=== PATIENT | male | born 1975 | race Caucasian/White ===

== ENCOUNTER 2017-07-04 09:46 | Inpatient (IN) | payer OTHER ==
[2017-07-04] MEDS ORDERED: Piperacillin/Tazobactam 4.5 GM in Sodium Chloride 0.9% 100 ML IV ONE (10:23)
--- NOTE | 2017-07-04 10:26 | EDM.PDOC ---
<Orly Martinez - Last Filed: 07/04/17 11:07> ED HPI GENERAL MEDICAL PROBLEM - General Chief Complaint: Lower Extremity Injury/Pain Stated Complaint: [facility] Time Seen by Provider: 07/04/17 10:02 Source of Information: Reports: Patient History Limitations: Reports: No Limitations - History of Present Illness INITIAL COMMENTS - FREE TEXT/NARRATIVE: Patient is a 41 YO male who presents today with right knee infection. He states he fell on the ice 5 days ago and landed on the right knee. 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 He states around 7 pm last night it became very red and painful. He went to the [facility] ER and was given 2 shots of Rocephin and prescribed vicodin for pain, Keflex and clindamycin. He took 2 tabs vicodin this morning but has not taken any of the antibiotics prescribed to him. He is here because the pain is severe and he states the infection is spreading up and down his leg. He denies skin infections in the past. He denies personal history of diabetes and states he is in generally good health. Right Lower Leg Pain Score (Numeric/FACES): 8 - Related Data Allergies Allergy/AdvReac Type Severity Reaction Status Date / Time No Known Allergies Allergy Verified 07/04/17 09:55 Home Meds: Home Meds Cephalexin 500 mg PO TID 07/04/17 [History] Clindamycin HCl [Cleocin] 300 mg PO Q8H 07/04/17 [History] Hydrocodone/Acetaminophen [Hydrocodon-Acetaminophen 5-325] 1 each PO Q6H PRN 01/11 [History] Past Medical History - Past Health History Medical/Surgical History: Denies Medical/Surgical History Social & Family History - Tobacco Use Smoking Status *Q: Never Smoker - Recreational Drug Use Recreational Drug Use: No Review of Systems - Review of Systems Review Of Systems: See Below Constitutional: Reports: Chills, Fever Respiratory: Reports: No Symptoms Cardiovascular: Reports: No Symptoms GI/Abdominal: Reports: No Symptoms Musculoskeletal: Reports: Leg Pain, Joint Pain (right knee), Joint Swelling Skin: Reports: Erythema, Wound Neurological: Reports: No Symptoms Psychiatric: Reports: No Symptoms ED EXAM, GENERAL - Physical Exam Exam: See Below Exam Limited By: No Limitations General Appearance: Alert, WD/WN, Moderate Distress Respiratory/Chest: No Respiratory Distress Cardiovascular: Normal Peripheral Pulses Peripheral Pulses: 2+: Posterior Tibial (L), Posterior Tibial (R), Dorsalis Pedis (L), Dorsalis Pedis (R) Extremities: Joint Swelling, Leg Pain, Limited Range of Motion (unable to flex the knee ), Increased Warmth, Redness (streaking redness to mid thigh and warmth and erythema distal to the ankle ) Neurological: Alert, Oriented, CN II-XII Intact, Normal Cognition Psychiatric: Normal Affect, Anxious Skin Exam: Erythema, Increased Warmth, Wound/Incision (wound on right knee approximately 2 inches by 2 inches) Course - Vital Signs Last Recorded V/S: Last Vital Signs Temp 100.4 F 07/04/17 09:52 Pulse 93 07/04/17 09:52 Resp 15 07/04/17 09:52 BP 139/74 07/04/17 09:52 Pulse Ox 97 07/04/17 09:52 - Orders/Labs/Meds Orders: Active Orders 24 hr Category Date Time Status CULTURE ANAEROBIC + SMEAR [RM] Stat Lab 07/04/17 10:20 Ordered CULTURE BLOOD [BC] Stat Lab 07/04/17 10:58 Received CULTURE BLOOD [BC] Stat Lab 07/04/17 11:10 Received Blood Culture x2 Reflex Set [OM.PC] Stat Oth 07/04/17 09:59 Ordered Labs: Laboratory Tests 07/04/17 07/04/17 Range/Units 11:10 11:10 WBC 20.16 H (4.23-9.07) K/mm3 RBC 5.08 (4.63-6.08) M/mm3 Hgb 14.6 (13.7-17.5) gm/L Hct 43.7 (40.1-51.0) % MCV 86.0 (79.0-92.2) fl MCH 28.7 (25.7-32.2) pg MCHC 33.4 (32.2-35.5) g/dl RDW Std Deviation 40.1 (35.1-43.9) fL Plt Count 288 (163-337) K/mm3 MPV 10.7 (9.4-12.3) fl Neutrophils % (Manual) 87 H (40-60) % Band Neutrophils % 4 (0-10) % Lymphocytes % (Manual) 5 L (20-40) % Atypical Lymphs % 0 % Monocytes % (Manual) 4 (2-10) % Eosinophils % (Manual) 0 L (0.8-7.0) % Basophils % (Manual) 0 L (0.2-1.2) Platelet Estimate See note RBC Morph Comment Normal Sodium 140 (136-145) mEq/L Potassium 3.6 (3.5-5.1) mEq/L Chloride 102 (98-107) mEq/L Carbon Dioxide 26 (21-32) mEq/L Anion Gap 15.6 H (5-15) BUN 14 (7-18) mg/dL Creatinine 1.1 (0.7-1.3) mg/dL Est Cr Clr Drug Dosing 97.00 mL/min Estimated GFR (MDRD) > 60 (>60) mL/min BUN/Creatinine Ratio 12.7 L (14-18) Glucose 107 H (74-106) mg/dL Calcium 8.8 (8.5-10.1) mg/dL Total Bilirubin 0.6 (0.2-1.0) mg/dL AST 15 (15-37) U/L ALT 34 (16-63) U/L Alkaline Phosphatase 67 (46-116) U/L C-Reactive Protein 19.8 H* (<1.0) mg/dL Total Protein 7.9 (6.4-8.2) g/dl Albumin 3.8 (3.4-5.0) g/dl Globulin 4.1 gm/dL Albumin/Globulin Ratio 0.9 L (1-2) Meds: Medications Discontinued Medications Generic Name Dose Route Start Last Admin Trade Name Alireza PRN Reason Stop Dose Admin Hydromorphone HCl 0.5 mg 07/04/17 10:29 07/04/17 10:38 Dilaudid IVPUSH 07/04/17 10:30 0.5 mg ONETIME ONE Administration Piperacillin Sod/Tazobactam 100 mls @ 200 mls/hr 07/04/17 10:23 07/04/17 10: 38 Sod 4.5 gm/ Sodium Chloride IV 07/04/17 10:52 200 mls/hr ONETIME ONE Administration Vancomycin HCl 2 gm/ Sodium 250 mls @ 250 mls/hr 07/04/17 10:29 07/04/17 10: 56 Chloride IV 07/04/17 11:28 Not Given ONETIME ONE Vancomycin HCl 2 gm/ Sodium 500 mls @ 500 mls/hr 07/04/17 10:45 07/04/17 10: 56 Chloride IV 07/04/17 11:44 500 mls/hr ONETIME ONE Administration Departure - Departure Disposition: Refer to Observation Clinical Impression: Cellulitis of knee, right - Discharge Information - My Orders Last 24 Hours: My Active Orders 07/04/17 09:59 Blood Culture x2 Reflex Set [OM.PC] Stat 07/04/17 10:20 CULTURE ANAEROBIC + SMEAR [RM] Stat 07/04/17 10:58 CULTURE BLOOD [BC] Stat 07/04/17 11:10 CULTURE BLOOD [BC] Stat - Assessment/Plan Last 24 Hours: My Active Orders 07/04/17 09:59 Blood Culture x2 Reflex Set [OM.PC] Stat 07/04/17 10:20 CULTURE ANAEROBIC + SMEAR [RM] Stat 07/04/17 10:58 CULTURE BLOOD [BC] Stat 07/04/17 11:10 CULTURE BLOOD [BC] Stat <Bc Hernandez L - Last Filed: 07/04/17 13:28> Course - Re-Assessments/Exams Free Text/Narrative Re-Assessment/Exam: 07/04/17 12:44 Initial history and exam by SAMINA Padgett student, I agree with her hx and exam of pt as documented. I have also taken a hx from and evaluated patient. He has serious cellulitis of the right knee that is spreading quite rapidly, he already did have Rocephin IM at [place] very early this morning at that ED visit. Symptoms have continued to worsen since that time to the point where he has severe difficulty ambulating. Came in by ambulance this morning to our ED short time ago. We have started him on Zosyn 4.5 g IV and also vancomycin 2 g IV has been ordered. White blood count around 20,000 C-reactive protein around 19. He does not appear to have an abscess or knee effusion. He has good motion of the knee with some but not severe discomfort. He will be admitted for further IV antibiotics and close monitoring of this severe cellulitis infection Departure - Departure Time of Disposition: 13:28 Condition: Serious ED Communication - Discussed Case With (1) Discussed Case With (1): Admitting Provider (Dr Cesar, decision to admit at about 11:40.)
[2017-07-04] MEDS ORDERED: HYDROmorphone 0.5 MG/0.5 ML SYRINGE IVPUSH ONE (10:29)
[2017-07-04] MEDS ORDERED: Vancomycin 2 GM in Sodium Chloride 0.9% 500 ML IV ONE (10:45)
--- NOTE | 2017-07-04 12:38 | CR ---
Right knee: Four views of the right knee were obtained. Comparison: No previous study. Soft tissue swelling is seen anteriorly. Medial and lateral joint spaces are maintained in height. No joint effusion is seen. No fracture or other bony abnormality is identified. Impression: 1. Soft tissue swelling. 2. No acute bony abnormality is appreciated on right knee exam. Diagnostic code #2
[2017-07-04] MEDS ORDERED: Sodium Chloride 0.9% 10 ML Syringe FLUSH PRN (13:50)
[2017-07-04] MEDS ORDERED: Ondansetron 4 MG/2 ML SDV IV PRN (13:50)
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
[2017-07-04] MEDS: Ketorolac 30 MG/ML SDV IM SCH ×2 (14:12→20:11)
[2017-07-04] MEDS: Acetaminophen/oxyCODONE 325-5 MG Tab PO PRN ×3 (14:12→22:26)
[2017-07-04] MEDS: Enoxaparin 40 MG/0.4 ML Syringe SUBCUT SCH (14:13)
[2017-07-04] MEDS: Bacitracin Oint 15 GM Tube TOP SCH ×2 (16:30→20:12)
[2017-07-04] MEDS: Clindamycin Phosphate 600 MG in Dextrose 5% in Water 100 ML IV SCH ×4 (17:10→23:36)
[2017-07-05] MEDS: Ketorolac 30 MG/ML SDV IVPUSH SCH ×4 (02:24→20:45)
[2017-07-05] MEDS: Acetaminophen/oxyCODONE 325-5 MG Tab PO PRN ×5 (02:25→23:07)
[2017-07-05] MEDS: Clindamycin Phosphate 600 MG in Dextrose 5% in Water 100 ML IV SCH ×8 (06:27→23:05)
[2017-07-05] MEDS: Bacitracin Oint 15 GM Tube TOP SCH ×2 (08:03→20:49)
[2017-07-05] MEDS: Enoxaparin 40 MG/0.4 ML Syringe SUBCUT SCH (08:04)
--- NOTE | 2017-07-05 11:29 | PCM.PN ---
- General Info Date of Service: 07/05/17 Subjective Update: Overnight, no acute events. Patient reports significant improvement in pain, compared to yesterday. Pain controlled with scheduled Toradol and PRN Percocet. Has been able to ambulate better, with assistance of walker. Has also been showering. Tolerating regular diet. - Patient Data Vitals - Most Recent: Last Vital Signs Temp 36.8 C 07/05/17 08:15 Pulse 83 07/05/17 08:15 Resp 16 07/05/17 08:15 BP 102/56 L 07/05/17 08:15 Pulse Ox 94 L 07/05/17 08:15 Weight - Most Recent: 108.125 kg I&O - Last 24 Hours: Intake & Output 07/04/17 07/05/17 07/05/17 22:59 06:59 14:59 Intake Total 1040 904 120 Output Total 600 1200 Balance 440 -296 120 Lab Results Last 24 Hours: Laboratory Results - last 24 hr 07/04/17 07/04/17 Range/Units 11:10 11:10 Neutrophils % (Manual) 87 H (40-60) % Band Neutrophils % 4 (0-10) % Lymphocytes % (Manual) 5 L (20-40) % Atypical Lymphs % 0 % Monocytes % (Manual) 4 (2-10) % Eosinophils % (Manual) 0 L (0.8-7.0) % Basophils % (Manual) 0 L (0.2-1.2) Platelet Estimate See note RBC Morph Comment Normal Sodium 140 (136-145) mEq/L Potassium 3.6 (3.5-5.1) mEq/L Chloride 102 (98-107) mEq/L Carbon Dioxide 26 (21-32) mEq/L Anion Gap 15.6 H (5-15) BUN 14 (7-18) mg/dL Creatinine 1.1 (0.7-1.3) mg/dL Est Cr Clr Drug Dosing 97.00 mL/min Estimated GFR (MDRD) > 60 (>60) mL/min BUN/Creatinine Ratio 12.7 L (14-18) Glucose 107 H (74-106) mg/dL Calcium 8.8 (8.5-10.1) mg/dL Total Bilirubin 0.6 (0.2-1.0) mg/dL AST 15 (15-37) U/L ALT 34 (16-63) U/L Alkaline Phosphatase 67 (46-116) U/L C-Reactive Protein 19.8 H* (<1.0) mg/dL Total Protein 7.9 (6.4-8.2) g/dl Albumin 3.8 (3.4-5.0) g/dl Globulin 4.1 gm/dL Albumin/Globulin Ratio 0.9 L (1-2) Kobi Results Last 24 Hours: Microbiology 07/04/17 11:10 Aerobic Blood Culture - Preliminary Blood - Venous - Lab Draw NO GROWTH AFTER 1 DAY Anaerobic Blood Culture - Preliminary NO GROWTH AFTER 1 DAY 07/04/17 10:58 Aerobic Blood Culture - Preliminary Blood - Venous NO GROWTH AFTER 1 DAY Anaerobic Blood Culture - Preliminary NO GROWTH AFTER 1 DAY 07/04/17 10:20 Gram Stain - Final Knee, Right Anaerobic Culture - Preliminary (Mrsa) Staphylococcus Aureus Med Orders - Current: Current Medications Bacitracin (Bacitracin Oint) 0 gm TOP BID [facility] Last Admin: 07/05/17 08:03 Dose: 1 applic Enoxaparin Sodium (Lovenox) 40 mg SUBCUT DAILY [facility] Last Admin: 07/05/17 08:04 Dose: 40 mg Hydromorphone HCl (Dilaudid) 0.5 mg IVPUSH Q2H PRN PRN Reason: Pain (severe 7-10) Clindamycin Phosphate 600 mg/ (Dextrose/Water) 104 mls @ 208 mls/hr IV Q6H [facility] Last Admin: 07/05/17 06:27 Dose: 208 mls/hr Ketorolac Tromethamine (Toradol) 30 mg IVPUSH Q6H [facility] Stop: 07/09/17 08:01 Last Admin: 07/05/17 08:04 Dose: 30 mg Ondansetron HCl (Zofran) 4 mg IV Q4H PRN PRN Reason: Nausea/Vomiting Oxycodone/Acetaminophen (Percocet 325-5 Mg) 1 - 2 tab PO Q4H PRN PRN Reason: Pain Last Admin: 07/05/17 11:11 Dose: 1 tab Sodium Chloride (Saline Flush) 10 ml FLUSH ASDIRECTED PRN PRN Reason: Keep Vein Open Discontinued Medications Hydromorphone HCl (Dilaudid) 0.5 mg IVPUSH ONETIME ONE Stop: 07/04/17 10:30 Last Admin: 07/04/17 10:38 Dose: 0.5 mg Piperacillin Sod/Tazobactam (Sod 4.5 gm/ Sodium Chloride) 100 mls @ 200 mls/hr IV ONETIME ONE Stop: 07/04/17 10:52 Last Admin: 07/04/17 10:38 Dose: 200 mls/hr Vancomycin HCl 2 gm/ Sodium (Chloride) 250 mls @ 250 mls/hr IV ONETIME ONE Stop: 07/04/17 11:28 Last Admin: 07/04/17 10:56 Dose: Not Given Vancomycin HCl 2 gm/ Sodium (Chloride) 500 mls @ 500 mls/hr IV ONETIME ONE Stop: 07/04/17 11:44 Last Admin: 07/04/17 10:56 Dose: 500 mls/hr Ketorolac Tromethamine (Toradol) 30 mg IM Q6H [facility] Last Admin: 07/04/17 20:11 Dose: 30 mg - Exam General: Alert, Oriented, Cooperative Extremities: Other (RIGHT KNEE SKIN BLANCHABLE ERYTHEMA IMPROVED FROM YESTERDAY. SURROUNDING EDEMA PRESENT, ALSO IMPROVED. TENDERNESS DECREASED. CENTRAL WOUND WITH BACITRACIN APPLIED. SMALL AMOUNT OF FIBRINOUS EXUDATE. ) - Problem List Review Problem List Initiated/Reviewed/Updated: Yes - My Orders Last 24 Hours: My Active Orders 07/04/17 13:19 Admission Status [Patient Status] [ADT] Routine 07/04/17 13:50 Ambulate [RC] ASDIRECTED Oxygen Therapy [RC] PRN VTE/DVT Education [RC] PER UNIT ROUTINE Vital Signs [RC] Q4HR Acetaminophen/oxyCODONE [Percocet 325-5 MG] 1 - 2 tab PO Q4H PRN HYDROmorphone [Dilaudid] 0.5 mg IVPUSH Q2H PRN Ondansetron [Zofran] 4 mg IV Q4H PRN Sodium Chloride 0.9% [Saline Flush] 10 ml FLUSH ASDIRECTED PRN Saline Lock Insert [OM.PC] Routine 07/04/17 13:52 Sequential Compression Device [OM.PC] Per Unit Routine 07/04/17 13:55 Resuscitation Status Routine 07/04/17 14:00 Enoxaparin [Lovenox] 40 mg SUBCUT DAILY 07/04/17 14:45 Bacitracin [Bacitracin Oint] 0 gm TOP BID 07/04/17 18:00 Clindamycin Phosphate [Cleocin] 600 mg Dextrose 5% in Water 100 ml IV Q6H 07/04/17 Dinner Regular Diet [DIET] 07/05/17 02:00 Ketorolac [Toradol] 30 mg IVPUSH Q6H - Plan Plan:: Mr. Stanford is a 41 yo male, otherwise healthy, admitted last night with RIGHT lower extremity cellulitis, HD#2. - Preliminary culture result shows MRSA (patient now on contact precautions). - Overall clinical improvement. Will continue Clindamycin IV. - Open wound may be amenable to debridement, depending on patient's clinical course. Will consider debridement, with possible sedation. NPO after midnight for possibility of this. - Recheck labs tomorrow AM. - Continue Lovenox SQ for VTE prophylaxis. - IS and ambulation. Jose Roberto Nielsen M.D., F.A.C.S. General Surgery Pager: [phone]
[2017-07-05] MEDS: Saccharomyces Boulardii (Probiotic) 250 MG Cap PO SCH ×2 (13:24→20:49)
[2017-07-06] MEDS: Ketorolac 30 MG/ML SDV IVPUSH SCH ×4 (03:05→20:11)
[2017-07-06] MEDS: Acetaminophen/oxyCODONE 325-5 MG Tab PO PRN ×3 (05:54→20:10)
[2017-07-06] MEDS: Clindamycin Phosphate 600 MG in Dextrose 5% in Water 100 ML IV SCH ×4 (05:55→14:41)
[2017-07-06] MEDS: Bacitracin Oint 15 GM Tube TOP SCH ×2 (08:22→20:27)
[2017-07-06] MEDS: Saccharomyces Boulardii (Probiotic) 250 MG Cap PO SCH ×2 (08:23→20:07)
[2017-07-06] MEDS: Enoxaparin 40 MG/0.4 ML Syringe SUBCUT SCH (08:23)
--- NOTE | 2017-07-06 09:51 | PCM.PN ---
- General Info Date of Service: 07/06/17 Subjective Update: Overall, pain is not significantly improved from yesterday. Continues to require scheduled Toradol and PRN Percocet for pain control. Also, continues to have difficulty ambulating. Has been NPO since midnight for possible procedure today. - Patient Data Vitals - Most Recent: Last Vital Signs Temp 36.4 C 07/06/17 08:40 Pulse 77 07/06/17 08:40 Resp 16 07/06/17 08:00 BP 112/72 07/06/17 08:40 Pulse Ox 96 07/06/17 08:40 Weight - Most Recent: 109.044 kg I&O - Last 24 Hours: Intake & Output 07/05/17 07/06/17 07/06/17 22:59 06:59 14:59 Intake Total 900 1000 Output Total 700 Balance 200 1000 Lab Results Last 24 Hours: Laboratory Results - last 24 hr 07/05/17 07/06/17 07/06/17 Range/Units 12:31 06:16 08:55 WBC 17.19 H 13.15 H (4.23-9.07) K/mm3 RBC 4.23 L 4.22 L (4.63-6.08) M/mm3 Hgb 12.2 L 12.2 L (13.7-17.5) gm/L Hct 36.8 L 36.4 L (40.1-51.0) % MCV 87.0 86.3 (79.0-92.2) fl MCH 28.8 28.9 (25.7-32.2) pg MCHC 33.2 33.5 (32.2-35.5) g/dl RDW Std Deviation 39.7 39.8 (35.1-43.9) fL Plt Count 254 273 (163-337) K/mm3 MPV 10.7 10.1 (9.4-12.3) fl Neut % (Auto) 86.4 H 82.2 H (34.0-67.9) % Lymph % (Auto) 4.7 L 7.1 L (21.8-53.1) % [place] % (Auto) 7.9 9.0 (5.3-12.2) % Eos % (Auto) 0.6 L 1.3 (0.8-7.0) Baso % (Auto) 0.1 0.2 (0.1-1.2) % Neut # (Auto) 14.86 H 10.81 H (1.78-5.38) K/mm3 Lymph # (Auto) 0.81 L 0.93 L (1.32-3.57) K/mm3 [place] # (Auto) 1.35 H 1.19 H (0.30-0.82) K/mm3 Eos # (Auto) 0.11 0.17 (0.04-0.54) K/mm3 Baso # (Auto) 0.01 0.02 (0.01-0.08) K/mm3 Manual Slide Review Abnormal smear C-Reactive Protein 27.5 H* (<1.0) mg/dL [facility] Results Last 24 Hours: Microbiology 07/04/17 11:10 Aerobic Blood Culture - Preliminary Blood - Venous - Lab Draw NO GROWTH AFTER 1 DAY Anaerobic Blood Culture - Preliminary NO GROWTH AFTER 1 DAY 07/04/17 10:58 Aerobic Blood Culture - Preliminary Blood - Venous NO GROWTH AFTER 1 DAY Anaerobic Blood Culture - Preliminary NO GROWTH AFTER 1 DAY 07/04/17 10:20 Gram Stain - Final Knee, Right Anaerobic Culture - Preliminary (Mrsa) Staphylococcus Aureus Med Orders - Current: Current Medications Bacitracin (Bacitracin Oint) 0 gm TOP BID [facility] Last Admin: 07/06/17 08:22 Dose: 1 applic Enoxaparin Sodium (Lovenox) 40 mg SUBCUT DAILY [facility] Last Admin: 07/06/17 08:23 Dose: 40 mg Hydromorphone HCl (Dilaudid) 0.5 mg IVPUSH Q2H PRN PRN Reason: Pain (severe 7-10) Clindamycin Phosphate 600 mg/ (Dextrose/Water) 104 mls @ 208 mls/hr IV Q6H [facility] Last Admin: 07/06/17 05:55 Dose: 208 mls/hr Ketorolac Tromethamine (Toradol) 30 mg IVPUSH Q6H [facility] Stop: 07/09/17 08:01 Last Admin: 07/06/17 08:20 Dose: 30 mg Ondansetron HCl (Zofran) 4 mg IV Q4H PRN PRN Reason: Nausea/Vomiting Oxycodone/Acetaminophen (Percocet 325-5 Mg) 1 - 2 tab PO Q4H PRN PRN Reason: Pain Last Admin: 07/06/17 05:54 Dose: 2 tab Saccharomyces Boulardii (Florastor) 250 mg PO BID [facility] Last Admin: 07/06/17 08:23 Dose: 250 mg Sodium Chloride (Saline Flush) 10 ml FLUSH ASDIRECTED PRN PRN Reason: Keep Vein Open Discontinued Medications Hydromorphone HCl (Dilaudid) 0.5 mg IVPUSH ONETIME ONE Stop: 07/04/17 10:30 Last Admin: 07/04/17 10:38 Dose: 0.5 mg Piperacillin Sod/Tazobactam (Sod 4.5 gm/ Sodium Chloride) 100 mls @ 200 mls/hr IV ONETIME ONE Stop: 07/04/17 10:52 Last Admin: 07/04/17 10:38 Dose: 200 mls/hr Vancomycin HCl 2 gm/ Sodium (Chloride) 250 mls @ 250 mls/hr IV ONETIME ONE Stop: 07/04/17 11:28 Last Admin: 07/04/17 10:56 Dose: Not Given Vancomycin HCl 2 gm/ Sodium (Chloride) 500 mls @ 500 mls/hr IV ONETIME ONE Stop: 07/04/17 11:44 Last Admin: 07/04/17 10:56 Dose: 500 mls/hr Ketorolac Tromethamine (Toradol) 30 mg IM Q6H [facility] Last Admin: 07/04/17 20:11 Dose: 30 mg - Exam Extremities: Other (RIGHT knee with limited active ROM.) Skin: Other (RIGHT knee with blanchable erythema and central open wound. Erythema, although better from admission, has not significantly improved since yesterday.) Wound/Incisions: Other (Central area at the anterior knee with open wound, necrotic tissue, fibrinous exudate, and purulence.) - Problem List Review Problem List Initiated/Reviewed/Updated: Yes - My Orders Last 24 Hours: My Active Orders 07/05/17 12:00 Saccharomyces Boulardii [Florastor] 250 mg PO BID 07/05/17 Dinner Nothing per Oral After Midnight Diet [DIET] 07/06/17 08:55 CBC WITH AUTO DIFF [HEME] Routine 07/07/17 05:11 C-REACTIVE PROTEIN [CHEM] AM - Plan Plan:: 41 yo male, HD#3 with RIGHT lower extremity cellulitis and open wound. WBC 13k ( down from 17k yesterday), and CRP elevated at 27. No improvement in appearance of the cellulitis, and worseninga appearance to open wound, which has necrotic tissue and purulence. Attempt made to debride the wound at the bedside, but patient could not tolerate due to pain. - Plan to take patient to the OR for debridement of the RIGHT lower extremity wound under anesthesia. Indications, risks, and benefits were discussed with the patient in detail. Risks include bleeding, worsening infection, damage to surrounding structures, need for additional procedures, [place], CVA, DVT/PE, and . - Change antibiotic from clindamycin to vancomycin. - Continue Lovenox for DVT prophylaxis. Jose Roberto Nielsen M.D., F.A.C.S. General Surgeon Pager: [phone]
[2017-07-06] MEDS ORDERED: Vancomycin 2 GM in Sodium Chloride 0.9% 500 ML IV ONE (10:24)
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
[2017-07-06] MEDS ORDERED: fentaNYL 100 MCG/2 ML SDV ONE (10:36)
[2017-07-06] MEDS ORDERED: Ketamine 500 mg/10 ML MDV ONE (10:37)
[2017-07-06] MEDS ORDERED: Midazolam 1 MG/ML 2 ML SDV ONE (10:37)
[2017-07-06] MEDS ORDERED: Propofol 200 MG/20 ML SDV ONE (10:53)
[2017-07-06] MEDS: Bupivacaine 0.5% 30 ML SDV ONE ×2 (11:19→11:33)
[2017-07-06] MEDS: Lidocaine 1% with EPINEPHrine 1:100,000 20 ML MDV ONE ×2 (11:19→11:33)
[2017-07-06] MEDS ORDERED: Lidocaine 1% 6 ML ONE (11:25)
[2017-07-06] MEDS ORDERED: HYDROmorphone 0.5 MG/0.5 ML Syringe ONE ×3 (11:26→11:40)
[2017-07-06] MEDS ORDERED: Ondansetron 4 MG/2 ML SDV ONE (11:35)
[2017-07-06] MEDS ORDERED: Lactated Ringers 1,000 ML ONE (11:36)
[2017-07-06] MEDS ORDERED: Glycopyrrolate 0.2 MG/ML SDV ONE (11:36)
--- NOTE | 2017-07-06 11:49 | PCM.OPNOTE ---
- General Post-Op/Procedure Note Date of Surgery/Procedure: 07/06/17 Operative Procedure(s): 1) Incision and drainage of RIGHT lower extremity abscess. 2) Debridement of RIGHT lower extremity wound Findings: Open wound overlying the RIGHT anterior knee, with underlying subcutaneous abscess, which underwent incision and drainage. About 10 cc of purulent fluid was drained. Necrotic skin/subcutaneous tissue was debrided. Purulent fluid was sent for culture. Pre Op Diagnosis: RIGHT lower extremity wound and cellulitis Post-Op Diagnosis: RIGHT lower extremity abscess, open wound, and cellulitis Anesthesia Technique: MAC Primary Surgeon: Jose Roberto Nielsen Anesthesia Provider: Ila Carrizales Fluid Replacement, Intraop: 1,000 (cc of crystalloid) EBL in mLs: 15 Complications: None Condition: Good Free Text/Narrative:: Indications for surgery: The patient is a 41 yo male, admitted on [id number] with RIGHT lower extremity cellulitis, HD#3, who has lack of clinical improvement. His open wound overlying the anterior RIGHT knee has necrotic- appearing tissue and some purulence. The patient was consented for surgical debridement. Indications, risks, and benefits were discussed with the patient in detail. Description of procedure: After surgical consent was verified, the patient was brought to the main OR. Anesthesia performed monitored anesthesia care. The patient was positioned in the supine position. The RIGHT lower extremity was prepped and draped in a sterile fashion. The patient had been receiving ongoing antibiotics (IV clindamycin) as an inpatient. He was given a perioperative dose of vancomycin IV. A surgical time-out was performed to verify proper patient, proper site, and proper procedure. An incision was made overlying the central area of the wound, with purulent fluid drained. The fluid was sent for culture. Local anesthestic (1:1 solution of 1% lidocaine with epinephrine and 0.5% bupivacaine) was injected around the wound (total of 10 cc used during the case). Necrotic skin and subcutaneous tissue was debrided. There was an abscess pocket that extended a few cm superior to the open wound. The purulent fluid was drained. A skin was incision was extended superiorly by about 3 cm to promote drainage. The wound had diffuse bleeding, and hemostasis was ensured with electrocautery. The underlying fascia appeared intact, without exposure of the patella bone. The surgical site was thoroughly irrigated with saline. Hemostasis was ensured. The wound was packed with 4x4 gauze, then covered Kerlix dressing and secured with an RITA wrap. The patient tolerated the procedure well, was brought out of anesthesia, and transported to the PACU in stable condition. I was presented and scrubbed for the entirety of the case. Jose Roberto Nielsen M.D., F.A.C.S. General Surgery Pager: [phone]
[2017-07-06] MEDS ORDERED: fentaNYL 100 MCG/2 ML SDV IVPUSH PRN (11:55)
[2017-07-06] MEDS ORDERED: Ondansetron 4 MG/2 ML SDV IVPUSH PRN (11:55)
[2017-07-06] MEDS ORDERED: diphenhydrAMINE 50 MG/ML SDV IVPUSH PRN (11:55)
[2017-07-06] MEDS ORDERED: HYDROmorphone 0.5 MG/0.5 ML Syringe IVPUSH PRN (11:55)
--- NOTE | 2017-07-06 11:59 | PCM.POSTAN ---
POST ANESTHESIA ASSESSMENT - MENTAL STATUS Mental Status: Oriented (Drowsy) - VITAL SIGNS Pulse Rate: 64 SaO2: 100 Resp Rate: 11 Blood Pressure: 120/70 Temperature: 36.2 C - RESPIRATORY Respiratory Status: Respiratory Rate WNL, Airway Patent, O2 Saturation Stable - CARDIOVASCULAR CV Status: Pulse Rate WNL, Blood Pressure Stable - GASTROINTESTINAL GI Status: No Symptoms - PAIN Pain Score: 0 - POST OP HYDRATION Hydration Status: Adequate & Stable
--- NOTE | 2017-07-06 12:26 | PCM48HPAN ---
Post Anesthesia Note - EVALUATION WITHIN 48HRS OF ANESTHETIC Vital Signs in Normal Range: Yes Patient Participated in Evaluation: Yes Respiratory Function Stable: Yes Airway Patent: Yes Cardiovascular Function Stable: Yes Hydration Status Stable: Yes Pain Control Satisfactory: Yes (With pain medications. ) Nausea and Vomiting Control Satisfactory: Yes Mental Status Recovered: Yes
[2017-07-06] MEDS: Docusate Sodium 100 MG Cap PO SCH ×2 (15:51→20:07)
[2017-07-06] MEDS: Vancomycin 1 GM, Vancomycin 500 MG in Sodium Chloride 0.9% 500 ML IV SCH (18:43)
[2017-07-07] MEDS: Vancomycin 1 GM, Vancomycin 500 MG in Sodium Chloride 0.9% 500 ML IV SCH ×3 (02:22→20:28)
[2017-07-07] MEDS: Ketorolac 30 MG/ML SDV IVPUSH SCH ×4 (02:23→20:29)
[2017-07-07] MEDS: Acetaminophen/oxyCODONE 325-5 MG Tab PO PRN ×4 (02:28→17:37)
[2017-07-07] MEDS ORDERED: Docusate Sodium 100 MG Cap PO PRN (03:13)
[2017-07-07] MEDS ORDERED: Magnesium Hydroxide 400 MG/5 ML Susp 30 ML Cup PO PRN (03:25)
[2017-07-07] MEDS ORDERED: Propofol 200 MG/20 ML SDV ONE (08:10)
[2017-07-07] MEDS: Saccharomyces Boulardii (Probiotic) 250 MG Cap PO SCH ×2 (08:49→20:31)
[2017-07-07] MEDS: Enoxaparin 40 MG/0.4 ML Syringe SUBCUT SCH (08:49)
[2017-07-07] MEDS: Docusate Sodium 100 MG Cap PO SCH ×2 (08:50→20:31)
[2017-07-07] MEDS: Bacitracin Oint 15 GM Tube TOP SCH (08:51)
[2017-07-07] MEDS: HYDROmorphone 0.5 MG/0.5 ML SYRINGE IVPUSH PRN (12:22)
[2017-07-08] MEDS: Acetaminophen/oxyCODONE 325-5 MG Tab PO PRN ×5 (02:53→20:42)
[2017-07-08] MEDS: Vancomycin 1 GM, Vancomycin 500 MG in Sodium Chloride 0.9% 500 ML IV SCH ×3 (02:54→19:35)
[2017-07-08] MEDS: Docusate Sodium 100 MG Cap PO SCH ×2 (08:50→20:42)
[2017-07-08] MEDS: HYDROmorphone 0.5 MG/0.5 ML SYRINGE IVPUSH PRN ×4 (08:50→23:28)
[2017-07-08] MEDS: Enoxaparin 40 MG/0.4 ML Syringe SUBCUT SCH (08:52)
[2017-07-08] MEDS: Saccharomyces Boulardii (Probiotic) 250 MG Cap PO SCH ×2 (08:53→20:42)
--- NOTE | 2017-07-08 15:03 | PCM.PN ---
- General Info Date of Service: 07/07/17 Subjective Update: RIGHT knee pain has improved since before surgery. Has been using scheduled Toradol, Dilaudid, and Percocet for pain control. Tolerating regular diet. Has been ambulating with walker. - Patient Data Vitals - Most Recent: Last Vital Signs Temp 36.6 C 07/08/17 12:52 Pulse 67 07/08/17 12:52 Resp 16 07/08/17 12:52 BP 120/71 07/08/17 12:52 Pulse Ox 97 07/08/17 13:00 Weight - Most Recent: 110.495 kg I&O - Last 24 Hours: Intake & Output 07/08/17 07/08/17 07/08/17 06:59 14:59 22:59 Intake Total 1300 120 Balance 1300 120 Lab Results Last 24 Hours: Laboratory Results - last 24 hr 07/07/17 07/08/17 07/08/17 Range/Units 18:30 05:48 05:48 WBC 9.98 H (4.23-9.07) K/mm3 RBC 4.32 L (4.63-6.08) M/mm3 Hgb 12.3 L (13.7-17.5) gm/L Hct 37.4 L (40.1-51.0) % MCV 86.6 (79.0-92.2) fl MCH 28.5 (25.7-32.2) pg MCHC 32.9 (32.2-35.5) g/dl RDW Std Deviation 39.3 (35.1-43.9) fL Plt Count 335 (163-337) K/mm3 MPV 10.1 (9.4-12.3) fl Neut % (Auto) 79.8 H (34.0-67.9) % Lymph % (Auto) 9.4 L (21.8-53.1) % [place] % (Auto) 7.7 (5.3-12.2) % Eos % (Auto) 2.1 (0.8-7.0) Baso % (Auto) 0.2 (0.1-1.2) % Neut # (Auto) 7.96 H (1.78-5.38) K/mm3 Lymph # (Auto) 0.94 L (1.32-3.57) K/mm3 [place] # (Auto) 0.77 (0.30-0.82) K/mm3 Eos # (Auto) 0.21 (0.04-0.54) K/mm3 Baso # (Auto) 0.02 (0.01-0.08) K/mm3 Manual Slide Review Normal smear C-Reactive Protein 11.2 H* (<1.0) mg/dL Vancomycin Trough 12.2 (10.0-20.0) Kobi Results Last 24 Hours: Microbiology 07/04/17 11:10 Aerobic Blood Culture - Preliminary Blood - Venous - Lab Draw NO GROWTH AFTER 4 DAYS Anaerobic Blood Culture - Preliminary NO GROWTH AFTER 4 DAYS 07/04/17 10:58 Aerobic Blood Culture - Preliminary Blood - Venous NO GROWTH AFTER 4 DAYS Anaerobic Blood Culture - Preliminary NO GROWTH AFTER 4 DAYS 07/06/17 11:18 Gram Stain - Final Knee, Left Anaerobic Culture - Preliminary (Mrsa) Staphylococcus Aureus 07/04/17 10:20 Gram Stain - Final Knee, Right Anaerobic Culture - Preliminary (Mrsa) Staphylococcus Aureus Probable Anaerobic Gp Cocci Med Orders - Current: Current Medications Docusate Sodium (Colace) 100 mg PO BID [facility] Last Admin: 07/08/17 08:50 Dose: 100 mg Enoxaparin Sodium (Lovenox) 40 mg SUBCUT DAILY [facility] Last Admin: 07/08/17 08:52 Dose: 40 mg Hydromorphone HCl (Dilaudid) 0.5 mg IVPUSH Q2H PRN PRN Reason: Pain (severe 7-10) Last Admin: 07/08/17 08:50 Dose: 0.5 mg Vancomycin HCl 1 gm/Vancomycin HCl 500 mg/ Sodium Chloride 500 mls @ 333.333 mls/hr IV Q8H [facility] Last Admin: 07/08/17 11:10 Dose: 333.333 mls/hr Magnesium Hydroxide (Milk Of Magnesia) 30 ml PO BID PRN PRN Reason: Constipation Last Admin: 07/07/17 03:50 Dose: 30 ml Ondansetron HCl (Zofran) 4 mg IV Q4H PRN PRN Reason: Nausea/Vomiting Oxycodone/Acetaminophen (Percocet 325-5 Mg) 1 - 2 tab PO Q4H PRN PRN Reason: Pain Last Admin: 07/08/17 11:52 Dose: 2 tab Saccharomyces Boulardii (Florastor) 250 mg PO BID [facility] Last Admin: 07/08/17 08:53 Dose: 250 mg Sodium Chloride (Saline Flush) 10 ml FLUSH ASDIRECTED PRN PRN Reason: Keep Vein Open Vancomycin HCl (Pharmacy To Dose - Vancomycin) 1 dose .XX ASDIRECTED [facility] Discontinued Medications Bacitracin (Bacitracin Oint) 0 gm TOP BID [facility] Last Admin: 07/07/17 08:51 Dose: Not Given Bupivacaine HCl (Marcaine 0.5%) Confirm Administered Dose 30 ml .ROUTE .STK-MED ONE Stop: 07/06/17 10:14 Last Admin: 07/06/17 11:19 Dose: 5 ml Diphenhydramine HCl (Benadryl) 25 mg IVPUSH Q6H PRN PRN Reason: Pruritis Stop: 07/06/17 18:00 Fentanyl (Sublimaze) Confirm Administered Dose 100 mcg .ROUTE .STK-MED ONE Stop: 07/06/17 10:37 Fentanyl (Sublimaze) 50 mcg IVPUSH Q5M PRN PRN Reason: Pain Stop: 07/06/17 18:00 Last Admin: 07/06/17 12:06 Dose: 50 mcg Glycopyrrolate (Robinul) Confirm Administered Dose 0.2 mg .ROUTE .STK-MED ONE Stop: 07/06/17 11:37 Hydromorphone HCl (Dilaudid) 0.5 mg IVPUSH ONETIME ONE Stop: 07/04/17 10:30 Last Admin: 07/04/17 10:38 Dose: 0.5 mg Hydromorphone HCl (Dilaudid) Confirm Administered Dose 0.5 mg .ROUTE .STK-MED ONE Stop: 07/06/17 11:27 Hydromorphone HCl (Dilaudid) Confirm Administered Dose 0.5 mg .ROUTE .STK-MED ONE Stop: 07/06/17 11:31 Hydromorphone HCl (Dilaudid) Confirm Administered Dose 0.5 mg .ROUTE .STK-MED ONE Stop: 07/06/17 11:41 Hydromorphone HCl (Dilaudid) 0.5 mg IVPUSH ASDIRECTED PRN PRN Reason: Severe Pain Stop: 07/06/17 14:00 Last Admin: 07/06/17 12:22 Dose: 0.5 mg Piperacillin Sod/Tazobactam (Sod 4.5 gm/ Sodium Chloride) 100 mls @ 200 mls/hr IV ONETIME ONE Stop: 07/04/17 10:52 Last Admin: 07/04/17 10:38 Dose: 200 mls/hr Vancomycin HCl 2 gm/ Sodium (Chloride) 250 mls @ 250 mls/hr IV ONETIME ONE Stop: 07/04/17 11:28 Last Admin: 07/04/17 10:56 Dose: Not Given Vancomycin HCl 2 gm/ Sodium (Chloride) 500 mls @ 500 mls/hr IV ONETIME ONE Stop: 07/04/17 11:44 Last Admin: 07/04/17 10:56 Dose: 500 mls/hr Clindamycin Phosphate 600 mg/ (Dextrose/Water) 104 mls @ 208 mls/hr IV Q6H [facility] Last Admin: 07/06/17 14:41 Dose: Not Given Vancomycin HCl 2 gm/ Sodium (Chloride) 500 mls @ 250 mls/hr IV ONETIME ONE Stop: 07/06/17 12:23 Last Admin: 07/06/17 11:05 Dose: 250 mls/hr Lidocaine HCl (Xylocaine-Mpf 1%) Confirm Administered Dose 6 mls @ as directed .ROUTE .STK-MED ONE Stop: 07/06/17 11:26 Lactated Ringer's (Ringers, Lactated) Confirm Administered Dose 1,000 mls @ as directed .ROUTE .STK-MED ONE Stop: 07/06/17 11:37 Ketamine HCl (Ketalar) Confirm Administered Dose 500 mg .ROUTE .STK-MED ONE Stop: 07/06/17 10:38 Ketorolac Tromethamine (Toradol) 30 mg IM Q6H [facility] Last Admin: 07/04/17 20:11 Dose: 30 mg Ketorolac Tromethamine (Toradol) 30 mg IVPUSH Q6H [facility] Stop: 07/09/17 08:01 Last Admin: 07/07/17 20:29 Dose: 30 mg Lidocaine/Epinephrine (Xylocaine 1% With Epinephrine 1:100,000) Confirm Administered Dose 20 ml .ROUTE .STK-MED ONE Stop: 07/06/17 10:14 Last Admin: 07/06/17 11:19 Dose: 5 ml Midazolam HCl (Versed 1 Mg/Ml) Confirm Administered Dose 2 mg .ROUTE .STK-MED ONE Stop: 07/06/17 10:38 Ondansetron HCl (Zofran) Confirm Administered Dose 4 mg .ROUTE .STK-MED ONE Stop: 07/06/17 11:36 Ondansetron HCl (Zofran) 4 mg IVPUSH ONETIME PRN PRN Reason: Nausea/Vomiting Stop: 07/06/17 16:00 Propofol (Diprivan 20 Ml) Confirm Administered Dose 1,200 mg .ROUTE .STK-MED ONE Stop: 07/06/17 10:54 Propofol (Diprivan 20 Ml) Confirm Administered Dose 600 mg .ROUTE .STK-MED ONE Stop: 07/07/17 08:11 Vancomycin HCl (Pharmacy To Dose - Vancomycin) 1 dose .XX ASDIRECTED [facility] - Exam General: Alert, Oriented, Cooperative Extremities: Other (RIGHT knee with open wound. Dressing taken down. Wound base clean without purulence. Surrounding erythema improved. Knee and lower leg is edematous. Limited ROM of RIGHT knee.) - Problem List Review Problem List Initiated/Reviewed/Updated: Yes - My Orders Last 24 Hours: My Active Orders 07/09/17 05:11 CRP [C-REACTIVE PROTEIN] [CHEM] AM - Plan Plan:: 41 yo male, HD#4 with RIGHT lower extremity cellulitis and open wound, POD#1 s/ p RIGHT knee subcutaneous abscess incision and drainage, with wound debridement. Patient with clinical improvement, with improvement in symptoms, appearance of wound, and with decreasing WBC/CRP. Culture demonstrates MRSA. - Continue IV vancomycin. - Wet-to-dry dressing performed at the bedside. Patient instructed to shower prior to dressing changes. - Continue Lovenox for DVT prophylaxis. Please note that this is a delayed entry. Progress Note is for [id number]. Jose Roberto Nielsen M.D., F.A.C.S. General Surgeon Pager: [phone]
--- NOTE | 2017-07-08 15:10 | PCM.PN ---
- General Info Date of Service: 07/08/17 Subjective Update: Overnight, no acute events. Pain has been controlled with Percocet, but still requiring PRN Dilaudid. Patient reports that RIGHT knee pain is worse today compared to yesterday, with more difficulty ambulating. - Patient Data Vitals - Most Recent: Last Vital Signs Temp 36.6 C 07/08/17 12:52 Pulse 67 07/08/17 12:52 Resp 16 07/08/17 12:52 BP 120/71 07/08/17 12:52 Pulse Ox 97 07/08/17 13:00 Weight - Most Recent: 110.495 kg I&O - Last 24 Hours: Intake & Output 07/08/17 07/08/17 07/08/17 06:59 14:59 22:59 Intake Total 1300 120 Balance 1300 120 Lab Results Last 24 Hours: Laboratory Results - last 24 hr 07/07/17 07/08/17 07/08/17 Range/Units 18:30 05:48 05:48 WBC 9.98 H (4.23-9.07) K/mm3 RBC 4.32 L (4.63-6.08) M/mm3 Hgb 12.3 L (13.7-17.5) gm/L Hct 37.4 L (40.1-51.0) % MCV 86.6 (79.0-92.2) fl MCH 28.5 (25.7-32.2) pg MCHC 32.9 (32.2-35.5) g/dl RDW Std Deviation 39.3 (35.1-43.9) fL Plt Count 335 (163-337) K/mm3 MPV 10.1 (9.4-12.3) fl Neut % (Auto) 79.8 H (34.0-67.9) % Lymph % (Auto) 9.4 L (21.8-53.1) % [place] % (Auto) 7.7 (5.3-12.2) % Eos % (Auto) 2.1 (0.8-7.0) Baso % (Auto) 0.2 (0.1-1.2) % Neut # (Auto) 7.96 H (1.78-5.38) K/mm3 Lymph # (Auto) 0.94 L (1.32-3.57) K/mm3 [place] # (Auto) 0.77 (0.30-0.82) K/mm3 Eos # (Auto) 0.21 (0.04-0.54) K/mm3 Baso # (Auto) 0.02 (0.01-0.08) K/mm3 Manual Slide Review Normal smear C-Reactive Protein 11.2 H* (<1.0) mg/dL Vancomycin Trough 12.2 (10.0-20.0) Kobi Results Last 24 Hours: Microbiology 07/04/17 11:10 Aerobic Blood Culture - Preliminary Blood - Venous - Lab Draw NO GROWTH AFTER 4 DAYS Anaerobic Blood Culture - Preliminary NO GROWTH AFTER 4 DAYS 07/04/17 10:58 Aerobic Blood Culture - Preliminary Blood - Venous NO GROWTH AFTER 4 DAYS Anaerobic Blood Culture - Preliminary NO GROWTH AFTER 4 DAYS 07/06/17 11:18 Gram Stain - Final Knee, Left Anaerobic Culture - Preliminary (Mrsa) Staphylococcus Aureus 07/04/17 10:20 Gram Stain - Final Knee, Right Anaerobic Culture - Preliminary (Mrsa) Staphylococcus Aureus Probable Anaerobic Gp Cocci Med Orders - Current: Current Medications Docusate Sodium (Colace) 100 mg PO BID [facility] Last Admin: 07/08/17 08:50 Dose: 100 mg Enoxaparin Sodium (Lovenox) 40 mg SUBCUT DAILY [facility] Last Admin: 07/08/17 08:52 Dose: 40 mg Hydromorphone HCl (Dilaudid) 0.5 mg IVPUSH Q2H PRN PRN Reason: Pain (severe 7-10) Last Admin: 07/08/17 08:50 Dose: 0.5 mg Vancomycin HCl 1 gm/Vancomycin HCl 500 mg/ Sodium Chloride 500 mls @ 333.333 mls/hr IV Q8H [facility] Last Admin: 07/08/17 11:10 Dose: 333.333 mls/hr Magnesium Hydroxide (Milk Of Magnesia) 30 ml PO BID PRN PRN Reason: Constipation Last Admin: 07/07/17 03:50 Dose: 30 ml Ondansetron HCl (Zofran) 4 mg IV Q4H PRN PRN Reason: Nausea/Vomiting Oxycodone/Acetaminophen (Percocet 325-5 Mg) 1 - 2 tab PO Q4H PRN PRN Reason: Pain Last Admin: 07/08/17 11:52 Dose: 2 tab Saccharomyces Boulardii (Florastor) 250 mg PO BID [facility] Last Admin: 07/08/17 08:53 Dose: 250 mg Sodium Chloride (Saline Flush) 10 ml FLUSH ASDIRECTED PRN PRN Reason: Keep Vein Open Vancomycin HCl (Pharmacy To Dose - Vancomycin) 1 dose .XX ASDIRECTED [facility] Discontinued Medications Bacitracin (Bacitracin Oint) 0 gm TOP BID [facility] Last Admin: 07/07/17 08:51 Dose: Not Given Bupivacaine HCl (Marcaine 0.5%) Confirm Administered Dose 30 ml .ROUTE .STK-MED ONE Stop: 07/06/17 10:14 Last Admin: 07/06/17 11:19 Dose: 5 ml Diphenhydramine HCl (Benadryl) 25 mg IVPUSH Q6H PRN PRN Reason: Pruritis Stop: 07/06/17 18:00 Fentanyl (Sublimaze) Confirm Administered Dose 100 mcg .ROUTE .STK-MED ONE Stop: 07/06/17 10:37 Fentanyl (Sublimaze) 50 mcg IVPUSH Q5M PRN PRN Reason: Pain Stop: 07/06/17 18:00 Last Admin: 07/06/17 12:06 Dose: 50 mcg Glycopyrrolate (Robinul) Confirm Administered Dose 0.2 mg .ROUTE .STK-MED ONE Stop: 07/06/17 11:37 Hydromorphone HCl (Dilaudid) 0.5 mg IVPUSH ONETIME ONE Stop: 07/04/17 10:30 Last Admin: 07/04/17 10:38 Dose: 0.5 mg Hydromorphone HCl (Dilaudid) Confirm Administered Dose 0.5 mg .ROUTE .STK-MED ONE Stop: 07/06/17 11:27 Hydromorphone HCl (Dilaudid) Confirm Administered Dose 0.5 mg .ROUTE .STK-MED ONE Stop: 07/06/17 11:31 Hydromorphone HCl (Dilaudid) Confirm Administered Dose 0.5 mg .ROUTE .STK-MED ONE Stop: 07/06/17 11:41 Hydromorphone HCl (Dilaudid) 0.5 mg IVPUSH ASDIRECTED PRN PRN Reason: Severe Pain Stop: 07/06/17 14:00 Last Admin: 07/06/17 12:22 Dose: 0.5 mg Piperacillin Sod/Tazobactam (Sod 4.5 gm/ Sodium Chloride) 100 mls @ 200 mls/hr IV ONETIME ONE Stop: 07/04/17 10:52 Last Admin: 07/04/17 10:38 Dose: 200 mls/hr Vancomycin HCl 2 gm/ Sodium (Chloride) 250 mls @ 250 mls/hr IV ONETIME ONE Stop: 07/04/17 11:28 Last Admin: 07/04/17 10:56 Dose: Not Given Vancomycin HCl 2 gm/ Sodium (Chloride) 500 mls @ 500 mls/hr IV ONETIME ONE Stop: 07/04/17 11:44 Last Admin: 07/04/17 10:56 Dose: 500 mls/hr Clindamycin Phosphate 600 mg/ (Dextrose/Water) 104 mls @ 208 mls/hr IV Q6H [facility] Last Admin: 07/06/17 14:41 Dose: Not Given Vancomycin HCl 2 gm/ Sodium (Chloride) 500 mls @ 250 mls/hr IV ONETIME ONE Stop: 07/06/17 12:23 Last Admin: 07/06/17 11:05 Dose: 250 mls/hr Lidocaine HCl (Xylocaine-Mpf 1%) Confirm Administered Dose 6 mls @ as directed .ROUTE .STK-MED ONE Stop: 07/06/17 11:26 Lactated Ringer's (Ringers, Lactated) Confirm Administered Dose 1,000 mls @ as directed .ROUTE .STK-MED ONE Stop: 07/06/17 11:37 Ketamine HCl (Ketalar) Confirm Administered Dose 500 mg .ROUTE .STK-MED ONE Stop: 07/06/17 10:38 Ketorolac Tromethamine (Toradol) 30 mg IM Q6H [facility] Last Admin: 07/04/17 20:11 Dose: 30 mg Ketorolac Tromethamine (Toradol) 30 mg IVPUSH Q6H [facility] Stop: 07/09/17 08:01 Last Admin: 07/07/17 20:29 Dose: 30 mg Lidocaine/Epinephrine (Xylocaine 1% With Epinephrine 1:100,000) Confirm Administered Dose 20 ml .ROUTE .STK-MED ONE Stop: 07/06/17 10:14 Last Admin: 07/06/17 11:19 Dose: 5 ml Midazolam HCl (Versed 1 Mg/Ml) Confirm Administered Dose 2 mg .ROUTE .STK-MED ONE Stop: 07/06/17 10:38 Ondansetron HCl (Zofran) Confirm Administered Dose 4 mg .ROUTE .STK-MED ONE Stop: 07/06/17 11:36 Ondansetron HCl (Zofran) 4 mg IVPUSH ONETIME PRN PRN Reason: Nausea/Vomiting Stop: 07/06/17 16:00 Propofol (Diprivan 20 Ml) Confirm Administered Dose 1,200 mg .ROUTE .STK-MED ONE Stop: 07/06/17 10:54 Propofol (Diprivan 20 Ml) Confirm Administered Dose 600 mg .ROUTE .STK-MED ONE Stop: 07/07/17 08:11 Vancomycin HCl (Pharmacy To Dose - Vancomycin) 1 dose .XX ASDIRECTED [facility] - Exam Extremities: Limited Range of Motion (RIGHT knee passive ROM 0-90.), Other ( RIGHT knee with open wound, dressing taken down. Wound base is clean, without purulence. Base has granulomatous tissue. Surrounding blanchable erythema is persistent (unchanged from yesterday). Pitting edema present around the wound and along the lower leg (also unchanged from yesterday). No tenderness at the lower leg.) - Problem List & Annotations (1) Cellulitis of knee, right SNOMED Code(s): 83166782 Code(s): L03.115 - CELLULITIS OF RIGHT LOWER LIMB Status: Acute Current Visit: Yes - Problem List Review Problem List Initiated/Reviewed/Updated: Yes - My Orders Last 24 Hours: My Active Orders 07/09/17 05:11 CRP [C-REACTIVE PROTEIN] [CHEM] AM - Plan Plan:: 41 yo male, HD#5 with RIGHT lower extremity cellulitis and open wound, POD#2 s/ p RIGHT knee subcutaneous abscess incision and drainage, with wound debridement. Patient with worsening pain and persistent erythma and edema at the RIGHT knee. RIGHT knee wound with signs of healing. WBC decrease to 10 ( from 11 yesterday). CRP decreased to 11 (from 17 yesterday). Culture results reviewed, which demonstrates MRSA sensitive to vancomcyin. Culture from 07/04 shows MRSA, as well as anaerobes. - Continue IV vancomycin, day #2. Unclear whether anaerobes from admission culture is pathologic. Will add IV Flagyl for coverage for now. - If no clinical improvement in the next 1-2 days, will consider osteomyelitis as differential diagnosis. - Extensive discussion with patient regarding the diagnosis and plan of care. A lot of his questions were answered. - Wet-to-dry dressing performed at the bedside. Patient instructed to shower prior to dressing changes. - Continue Lovenox for DVT prophylaxis. Jose Roberto Nielsen M.D., F.A.C.S. General Surgeon Pager: [phone]
[2017-07-08] MEDS: metroNIDAZOLE/Normal Saline 500 MG in Premix Bag 1 BAG IV SCH ×2 (15:42→23:32)
[2017-07-08] MEDS: Ibuprofen 800 MG Tab PO SCH ×2 (15:42→23:26)
[2017-07-09] MEDS: Vancomycin 1 GM, Vancomycin 500 MG in Sodium Chloride 0.9% 500 ML IV SCH ×3 (02:58→18:18)
[2017-07-09] MEDS: HYDROmorphone 0.5 MG/0.5 ML SYRINGE IVPUSH PRN ×3 (03:11→09:01)
[2017-07-09] MEDS: Acetaminophen/oxyCODONE 325-5 MG Tab PO PRN ×5 (05:14→20:44)
[2017-07-09] MEDS: metroNIDAZOLE/Normal Saline 500 MG in Premix Bag 1 BAG IV SCH (06:19)
[2017-07-09] MEDS: Ibuprofen 800 MG Tab PO SCH ×3 (07:05→22:39)
[2017-07-09] MEDS: Saccharomyces Boulardii (Probiotic) 250 MG Cap PO SCH ×2 (08:34→20:26)
[2017-07-09] MEDS: Enoxaparin 40 MG/0.4 ML Syringe SUBCUT SCH (08:35)
[2017-07-09] MEDS: Docusate Sodium 100 MG Cap PO SCH ×2 (08:35→20:26)
--- NOTE | 2017-07-09 10:38 | PCM.PN ---
- General Info Date of Service: 07/09/17 Subjective Update: Overnight, no acute events. Patient reports improvement in pain. Still requiring IV Dilaudid for pain control, in addition to Percocet and scheduled ibuprofen. - Patient Data Vitals - Most Recent: Last Vital Signs Temp 36.3 C 07/09/17 02:56 Pulse 58 L 07/09/17 02:56 Resp 19 07/08/17 20:38 BP 131/99 H 07/09/17 02:56 Pulse Ox 98 07/09/17 02:56 Weight - Most Recent: 110.087 kg I&O - Last 24 Hours: Intake & Output 07/08/17 07/09/17 07/09/17 22:59 06:59 14:59 Intake Total 2825 2525 Balance 2825 2525 Lab Results Last 24 Hours: Laboratory Results - last 24 hr 07/09/17 07/09/17 07/09/17 Range/Units 05:28 05:28 05:28 WBC 8.49 (4.23-9.07) K/mm3 RBC 4.21 L (4.63-6.08) M/mm3 Hgb 11.9 L (13.7-17.5) gm/L Hct 36.8 L (40.1-51.0) % MCV 87.4 (79.0-92.2) fl MCH 28.3 (25.7-32.2) pg MCHC 32.3 (32.2-35.5) g/dl RDW Std Deviation 39.9 (35.1-43.9) fL Plt Count 347 H (163-337) K/mm3 MPV 10.1 (9.4-12.3) fl Neut % (Auto) 69.4 H (34.0-67.9) % Lymph % (Auto) 14.1 L (21.8-53.1) % [place] % (Auto) 10.6 (5.3-12.2) % Eos % (Auto) 2.8 (0.8-7.0) Baso % (Auto) 0.2 (0.1-1.2) % Neut # (Auto) 5.88 H (1.78-5.38) K/mm3 Lymph # (Auto) 1.20 L (1.32-3.57) K/mm3 [place] # (Auto) 0.90 H (0.30-0.82) K/mm3 Eos # (Auto) 0.24 (0.04-0.54) K/mm3 Baso # (Auto) 0.02 (0.01-0.08) K/mm3 Manual Slide Review Abnormal smear ESR 49 H (0-15) mm/hr Sodium 141 (136-145) mEq/L Potassium 4.4 (3.5-5.1) mEq/L Chloride 106 (98-107) mEq/L Carbon Dioxide 25 (21-32) mEq/L Anion Gap 14.4 (5-15) BUN 19 H (7-18) mg/dL Creatinine 0.8 (0.7-1.3) mg/dL Est Cr Clr Drug Dosing 133.38 mL/min Estimated GFR (MDRD) > 60 (>60) mL/min BUN/Creatinine Ratio 23.8 H (14-18) Glucose 90 (74-106) mg/dL Calcium 8.4 L (8.5-10.1) mg/dL Total Bilirubin 0.2 (0.2-1.0) mg/dL AST 32 (15-37) U/L ALT 66 H (16-63) U/L Alkaline Phosphatase 70 (46-116) U/L C-Reactive Protein 6.0 H* (<1.0) mg/dL Total Protein 6.3 L (6.4-8.2) g/dl Albumin 2.7 L (3.4-5.0) g/dl Globulin 3.6 gm/dL Albumin/Globulin Ratio 0.8 L (1-2) Kobi Results Last 24 Hours: Microbiology 07/06/17 11:18 Gram Stain - Final Knee, Left Anaerobic Culture - Preliminary (Mrsa) Staphylococcus Aureus 07/04/17 10:20 Gram Stain - Final Knee, Right Anaerobic Culture - Preliminary (Mrsa) Staphylococcus Aureus Peptostreptococcus Species 07/04/17 11:10 Aerobic Blood Culture - Preliminary Blood - Venous - Lab Draw NO GROWTH AFTER 4 DAYS Anaerobic Blood Culture - Preliminary NO GROWTH AFTER 4 DAYS 07/04/17 10:58 Aerobic Blood Culture - Preliminary Blood - Venous NO GROWTH AFTER 4 DAYS Anaerobic Blood Culture - Preliminary NO GROWTH AFTER 4 DAYS Med Orders - Current: Current Medications Docusate Sodium (Colace) 100 mg PO BID [facility] Last Admin: 07/09/17 08:35 Dose: 100 mg Enoxaparin Sodium (Lovenox) 40 mg SUBCUT DAILY [facility] Last Admin: 07/09/17 08:35 Dose: 40 mg Hydromorphone HCl (Dilaudid) 0.5 mg IVPUSH Q2H PRN PRN Reason: Pain (severe 7-10) Last Admin: 07/09/17 09:01 Dose: 0.5 mg Vancomycin HCl 1 gm/Vancomycin HCl 500 mg/ Sodium Chloride 500 mls @ 333.333 mls/hr IV Q8H [facility] Last Admin: 07/09/17 02:58 Dose: 333.333 mls/hr Metronidazole 500 mg/ Premix 100 mls @ 100 mls/hr IV Q8H [facility] Last Admin: 07/09/17 06:19 Dose: 100 mls/hr Ibuprofen (Motrin) 800 mg PO Q8H [facility] Last Admin: 07/09/17 07:05 Dose: 800 mg Magnesium Hydroxide (Milk Of Magnesia) 30 ml PO BID PRN PRN Reason: Constipation Last Admin: 07/07/17 03:50 Dose: 30 ml Ondansetron HCl (Zofran) 4 mg IV Q4H PRN PRN Reason: Nausea/Vomiting Oxycodone/Acetaminophen (Percocet 325-5 Mg) 1 - 2 tab PO Q4H PRN PRN Reason: Pain Last Admin: 07/09/17 08:35 Dose: 2 tab Saccharomyces Boulardii (Florastor) 250 mg PO BID [facility] Last Admin: 07/09/17 08:34 Dose: 250 mg Sodium Chloride (Saline Flush) 10 ml FLUSH ASDIRECTED PRN PRN Reason: Keep Vein Open Vancomycin HCl (Pharmacy To Dose - Vancomycin) 1 dose .XX ASDIRECTED [facility] Discontinued Medications Bacitracin (Bacitracin Oint) 0 gm TOP BID [facility] Last Admin: 07/07/17 08:51 Dose: Not Given Bupivacaine HCl (Marcaine 0.5%) Confirm Administered Dose 30 ml .ROUTE .STK-MED ONE Stop: 07/06/17 10:14 Last Admin: 07/06/17 11:19 Dose: 5 ml Diphenhydramine HCl (Benadryl) 25 mg IVPUSH Q6H PRN PRN Reason: Pruritis Stop: 07/06/17 18:00 Fentanyl (Sublimaze) Confirm Administered Dose 100 mcg .ROUTE .STK-MED ONE Stop: 07/08/17 23:55 Fentanyl (Sublimaze) 50 mcg IVPUSH Q5M PRN PRN Reason: Pain Stop: 07/06/17 18:00 Last Admin: 07/06/17 12:06 Dose: 50 mcg Glycopyrrolate (Robinul) Confirm Administered Dose 0.2 mg .ROUTE .STK-MED ONE Stop: 07/06/17 11:37 Hydromorphone HCl (Dilaudid) 0.5 mg IVPUSH ONETIME ONE Stop: 07/04/17 10:30 Last Admin: 07/04/17 10:38 Dose: 0.5 mg Hydromorphone HCl (Dilaudid) Confirm Administered Dose 0.5 mg .ROUTE .STK-MED ONE Stop: 07/06/17 11:27 Hydromorphone HCl (Dilaudid) Confirm Administered Dose 0.5 mg .ROUTE .STK-MED ONE Stop: 07/06/17 11:31 Hydromorphone HCl (Dilaudid) Confirm Administered Dose 0.5 mg .ROUTE .STK-MED ONE Stop: 07/06/17 11:41 Hydromorphone HCl (Dilaudid) 0.5 mg IVPUSH ASDIRECTED PRN PRN Reason: Severe Pain Stop: 07/06/17 14:00 Last Admin: 07/06/17 12:22 Dose: 0.5 mg Piperacillin Sod/Tazobactam (Sod 4.5 gm/ Sodium Chloride) 100 mls @ 200 mls/hr IV ONETIME ONE Stop: 07/04/17 10:52 Last Admin: 07/04/17 10:38 Dose: 200 mls/hr Vancomycin HCl 2 gm/ Sodium (Chloride) 250 mls @ 250 mls/hr IV ONETIME ONE Stop: 07/04/17 11:28 Last Admin: 07/04/17 10:56 Dose: Not Given Vancomycin HCl 2 gm/ Sodium (Chloride) 500 mls @ 500 mls/hr IV ONETIME ONE Stop: 07/04/17 11:44 Last Admin: 07/04/17 10:56 Dose: 500 mls/hr Clindamycin Phosphate 600 mg/ (Dextrose/Water) 104 mls @ 208 mls/hr IV Q6H [facility] Last Admin: 07/06/17 14:41 Dose: Not Given Vancomycin HCl 2 gm/ Sodium (Chloride) 500 mls @ 250 mls/hr IV ONETIME ONE Stop: 07/06/17 12:23 Last Admin: 07/06/17 11:05 Dose: 250 mls/hr Lidocaine HCl (Xylocaine-Mpf 1%) Confirm Administered Dose 6 mls @ as directed .ROUTE .STK-MED ONE Stop: 07/06/17 11:26 Lactated Ringer's (Ringers, Lactated) Confirm Administered Dose 1,000 mls @ as directed .ROUTE .STK-MED ONE Stop: 07/06/17 11:37 Ketamine HCl (Ketalar) Confirm Administered Dose 500 mg .ROUTE .STK-MED ONE Stop: 07/06/17 10:38 Ketorolac Tromethamine (Toradol) 30 mg IM Q6H [facility] Last Admin: 07/04/17 20:11 Dose: 30 mg Ketorolac Tromethamine (Toradol) 30 mg IVPUSH Q6H [facility] Stop: 07/09/17 08:01 Last Admin: 07/07/17 20:29 Dose: 30 mg Lidocaine/Epinephrine (Xylocaine 1% With Epinephrine 1:100,000) Confirm Administered Dose 20 ml .ROUTE .STK-MED ONE Stop: 07/06/17 10:14 Last Admin: 07/06/17 11:19 Dose: 5 ml Midazolam HCl (Versed 1 Mg/Ml) Confirm Administered Dose 2 mg .ROUTE .STK-MED ONE Stop: 07/06/17 10:38 Ondansetron HCl (Zofran) Confirm Administered Dose 4 mg .ROUTE .STK-MED ONE Stop: 07/06/17 11:36 Ondansetron HCl (Zofran) 4 mg IVPUSH ONETIME PRN PRN Reason: Nausea/Vomiting Stop: 07/06/17 16:00 Propofol (Diprivan 20 Ml) Confirm Administered Dose 1,200 mg .ROUTE .STK-MED ONE Stop: 07/06/17 10:54 Propofol (Diprivan 20 Ml) Confirm Administered Dose 600 mg .ROUTE .STK-MED ONE Stop: 07/07/17 08:11 Vancomycin HCl (Pharmacy To Dose - Vancomycin) 1 dose .XX ASDIRECTED [facility] - Exam Extremities: Limited Range of Motion (RIGHT KNEE PASSIVE ROM 0-90), Other ( RIGHT KNEE WOUND IS OPEN WITH GRANUALTION TISSUE AT BASE. SURROUNDING ERYTHEMA AND EDEMA STILL PRESENT, WITH VERY SLIGHT IMPROVEMENT COMPARED TO YESTERDAY. TENDERNESS AROUND WOUND. ) - Problem List & Annotations (1) Cellulitis of knee, right SNOMED Code(s): 85270971 Code(s): L03.115 - CELLULITIS OF RIGHT LOWER LIMB Status: Acute Current Visit: Yes - Problem List Review Problem List Initiated/Reviewed/Updated: Yes - My Orders Last 24 Hours: My Active Orders 07/08/17 15:00 metroNIDAZOLE/Normal Saline [Flagyl 500 MG in NS 100 ML] 500 mg Premix Bag 1 bag IV Q8H 07/08/17 15:20 Elevate Extremity [RC] BID 07/08/17 15:30 Ibuprofen [Motrin] 800 mg PO Q8H 07/10/17 05:11 CBC WITH AUTO DIFF [HEME] AM CMP [COMPREHENSIVE METABOLIC PN,CMP] [CHEM] AM ESR [SEDIMENTATION RATE AUTO] [HEME] AM 07/11/17 05:11 CBC WITH AUTO DIFF [HEME] AM CMP [COMPREHENSIVE METABOLIC PN,CMP] [CHEM] AM ESR [SEDIMENTATION RATE AUTO] [HEME] AM - Plan Plan:: 41 yo male, HD#6 with RIGHT lower extremity cellulitis and open wound, POD#3 s/ p RIGHT knee subcutaneous abscess incision and drainage, with wound debridement. Patient still requiring IV narcotics for pain control. Erythema and edema still present, with only slight improvement. Inflammatory markers are improved (WBC 8.5, decreased from 10 yesterday; CRP 6, decreased from 11 yesterday; ESR is 40. Culture results reviewed, which demonstrates MRSA sensitive to vancomcyin. Culture from 07/04 shows MRSA, as well as Peptostreptococcus (anaerobes). - Polymicrobial soft tissue infection. Now on Flagyl day #2, vancomycin day #3. Will change Flagyl to IV Zosyn. - CT scan of the RLE to assess for underlying soft tissue or bony involvement. Results reviewed. No acute bony abnormality. No underlying abscess. Soft tissue edema present. - Wet-to-dry dressing performed at the bedside. Instructed patient on how to perform. - Discussed with patient extensively regarding his diagnosis and plan of care. - Will need continued inpatient admission for IV antibiotics. Also, patient still requiring IV narcotics for pain control. Encouraged patient to use oral pain meds. He is currently only Percocet PRN and scheduled ibuprofen. - Continue elevation of RLE. - Continue Lovenox for DVT prophylaxis. I explained to the patient that I will be out of town starting tomorrow morning , so one of my surgical colleagues, Dr. Purdy, will be taking over his care. The patient's case was discussed with Dr. Purdy. Jose Roberto Nielsen M.D., F.A.C.S. General Surgeon Pager: [phone]
[2017-07-09] MEDS ORDERED: Piperacillin/Tazobactam 4.5 GM in Sodium Chloride 0.9% 100 ML IV ONE (11:00)
[2017-07-09] MEDS ORDERED: Iopamidol 612 MG/ML 150 ML Bottle IVPUSH ONE (11:15)
[2017-07-09] MEDS ORDERED: Sodium Chloride 0.9% 10 ML Syringe FLUSH PRN (11:15)
--- NOTE | 2017-07-09 12:58 | CT ---
CT right lower extremity Technique: Multiple axial sections were obtained through the right lower extremity from slightly above the mid thigh inferiorly through the ankle and foot. Intravenous contrast was utilized. Reconstructed coronal and sagittal images were reviewed. Findings: Distal superficial femoral artery, popliteal artery as well as peroneal and anterior tibial arteries appear patent. Posterior tibial artery also felt to be patent. Soft tissue defect is identified anteriorly within the knee anterior to the patellar tendon. Diffuse subcutaneous edema is identified throughout the right lower extremity, ankle and foot. No focal fluid collections are seen on this exam to indicate definite abscess. No muscle abnormality is appreciated. No acute bony abnormality is seen. Impression: 1. Soft tissue defect anterior to the patellar tendon. 2. Diffuse subcutaneous edema throughout the lower extremity. 3. No arterial occlusion is seen. No fluid collections to indicate abscess are seen. No muscle abnormality is appreciated. Diagnostic code #3
--- NOTE | 2017-07-09 14:52 | PCM.DCSUM1 ---
Discharge Summary - Hospital Course Free Text/Narrative:: Mr. Corbin Stanford is a 41 yo male who presented with RIGHT knee cellulitis and open wound on 04Jul2017. The patient was admitted and placed on IV clindamycin. On HD#3 (06Jul2017), due to worsening appearance of his wound, he was taken to the OR for wound debridement and incision and drainage of RIGHT knee subcutaneous abscess. There was no obvious extension to the underlying bone. The patient was placed on IV vancomycin post-op. Culture from admission showed MRSA, as well as poststreptococcus (an anaerobe). IV Flagyl was added to the patient's antibiotic regimen, which was then switched to IV Zosyn. Post-op, the patient made slow improvement in symptoms and inflammatory markers. Due to continued need for IV narcotics for pain control, as well as persistent swelling/erythema around the open wound, a CT scan of the R lower extremity was obtained on 09Jul2017, which showed subcutaneous edema, without underlying abscess and no acute bony abnormality. During the patient's hospitalization, daily wet-to-dry dressing changes were performed to the RIGHT knee wound. - Discharge Data Discharge Date: 07/12/17 Discharge Disposition: Home, Self-Care 01 Condition: Good - Discharge Diagnosis/Problem(s) (1) Cellulitis of knee, right SNOMED Code(s): 34635901 ICD Code: L03.115 - CELLULITIS OF RIGHT LOWER LIMB Status: Acute - Patient Summary/Data Operative Procedure(s) Performed: 1) Incision and drainage of RIGHT lower extremity abscess. 2) Debridement of RIGHT lower extremity wound - Patient Instructions Activity: No Strenuous Activities (Until surgical follow-up.) Showering/Bathing: May Shower (You may remove all dressing before showering. Then redress your wound after the shower.), No Tub Bathing/Swimming Wound/Incision Care: Change Dressing Daily (Perform wet-to-dry dressing daily as instructed.) - Discharge Plan Home Medications: Home Meds Hydrocodone/Acetaminophen [Hydrocodon-Acetaminophen 5-325] 1 each PO Q6H PRN 01/11 [History] Ibuprofen [IJD: Ibuprofen] 800 mg PO Q8H PRN tablet 07/12/17 [Rx] Sulfamethoxazole/Trimethoprim [IJD: Sulfamethoxazole/Trimethoprim DS] 1 tab PO BID #0 tablet 07/12/17 [Rx] Patient Handouts: Negative Pressure Wound Therapy Dressing Care, Cellulitis, Adult, [id number], Surgical Wound Debridement, Care After, Negative Pressure Wound Therapy, MRSA Infection, Adult, MRSA FAQs - BARROS Referrals: PCP,None [Ordering Only Provider] - - Discharge Summary/Plan Comment DC Time >30 min.: Yes - Patient Data Vitals - Most Recent: Last Vital Signs Temp 37.1 C 07/09/17 10:00 Pulse 67 07/09/17 08:34 Resp 18 07/09/17 08:34 BP 110/63 07/09/17 08:34 Pulse Ox 99 07/09/17 13:00 Weight - Most Recent: 110.087 kg I&O - Last 24 hours: Intake & Output 07/08/17 07/09/17 07/09/17 22:59 06:59 14:59 Intake Total 2825 2525 120 Balance 2825 2525 120 Lab Results - Last 24 hrs: Laboratory Results - last 24 hr 07/09/17 07/09/17 07/09/17 Range/Units 05:28 05:28 05:28 WBC 8.49 (4.23-9.07) K/mm3 RBC 4.21 L (4.63-6.08) M/mm3 Hgb 11.9 L (13.7-17.5) gm/L Hct 36.8 L (40.1-51.0) % MCV 87.4 (79.0-92.2) fl MCH 28.3 (25.7-32.2) pg MCHC 32.3 (32.2-35.5) g/dl RDW Std Deviation 39.9 (35.1-43.9) fL Plt Count 347 H (163-337) K/mm3 MPV 10.1 (9.4-12.3) fl Neut % (Auto) 69.4 H (34.0-67.9) % Lymph % (Auto) 14.1 L (21.8-53.1) % [place] % (Auto) 10.6 (5.3-12.2) % Eos % (Auto) 2.8 (0.8-7.0) Baso % (Auto) 0.2 (0.1-1.2) % Neut # (Auto) 5.88 H (1.78-5.38) K/mm3 Lymph # (Auto) 1.20 L (1.32-3.57) K/mm3 [place] # (Auto) 0.90 H (0.30-0.82) K/mm3 Eos # (Auto) 0.24 (0.04-0.54) K/mm3 Baso # (Auto) 0.02 (0.01-0.08) K/mm3 Manual Slide Review Abnormal smear ESR 49 H (0-15) mm/hr Sodium 141 (136-145) mEq/L Potassium 4.4 (3.5-5.1) mEq/L Chloride 106 (98-107) mEq/L Carbon Dioxide 25 (21-32) mEq/L Anion Gap 14.4 (5-15) BUN 19 H (7-18) mg/dL Creatinine 0.8 (0.7-1.3) mg/dL Est Cr Clr Drug Dosing 133.38 mL/min Estimated GFR (MDRD) > 60 (>60) mL/min BUN/Creatinine Ratio 23.8 H (14-18) Glucose 90 (74-106) mg/dL Calcium 8.4 L (8.5-10.1) mg/dL Total Bilirubin 0.2 (0.2-1.0) mg/dL AST 32 (15-37) U/L ALT 66 H (16-63) U/L Alkaline Phosphatase 70 (46-116) U/L C-Reactive Protein 6.0 H* (<1.0) mg/dL Total Protein 6.3 L (6.4-8.2) g/dl Albumin 2.7 L (3.4-5.0) g/dl Globulin 3.6 gm/dL Albumin/Globulin Ratio 0.8 L (1-2) MATT Results - Last 24 hrs: Microbiology 07/06/17 11:18 Gram Stain - Final Knee, Left Anaerobic Culture - Final (Mrsa) Staphylococcus Aureus 07/04/17 10:20 Gram Stain - Final Knee, Right Anaerobic Culture - Final (Mrsa) Staphylococcus Aureus Peptostreptococcus Species 07/04/17 11:10 Aerobic Blood Culture - Preliminary Blood - Venous - Lab Draw NO GROWTH AFTER 5 DAYS Anaerobic Blood Culture - Preliminary NO GROWTH AFTER 5 DAYS 07/04/17 10:58 Aerobic Blood Culture - Preliminary Blood - Venous NO GROWTH AFTER 5 DAYS Anaerobic Blood Culture - Preliminary NO GROWTH AFTER 5 DAYS Med Orders - Current: Current Medications Docusate Sodium (Colace) 100 mg PO BID [facility] Last Admin: 07/09/17 08:35 Dose: 100 mg Enoxaparin Sodium (Lovenox) 40 mg SUBCUT DAILY [facility] Last Admin: 07/09/17 08:35 Dose: 40 mg Hydromorphone HCl (Dilaudid) 0.5 mg IVPUSH Q2H PRN PRN Reason: Pain (severe 7-10) Last Admin: 07/09/17 09:01 Dose: 0.5 mg Vancomycin HCl 1 gm/Vancomycin HCl 500 mg/ Sodium Chloride 500 mls @ 333.333 mls/hr IV Q8H [facility] Last Admin: 07/09/17 12:21 Dose: 333.333 mls/hr Piperacillin Sod/Tazobactam (Sod 4.5 gm/ Sodium Chloride) 100 mls @ 25 mls/hr IV Q8H [facility] Ibuprofen (Motrin) 800 mg PO Q8H [facility] Last Admin: 07/09/17 07:05 Dose: 800 mg Magnesium Hydroxide (Milk Of Magnesia) 30 ml PO BID PRN PRN Reason: Constipation Last Admin: 07/07/17 03:50 Dose: 30 ml Ondansetron HCl (Zofran) 4 mg IV Q4H PRN PRN Reason: Nausea/Vomiting Oxycodone/Acetaminophen (Percocet 325-5 Mg) 1 - 2 tab PO Q4H PRN PRN Reason: Pain Last Admin: 07/09/17 12:22 Dose: 2 tab Saccharomyces Boulardii (Florastor) 250 mg PO BID [facility] Last Admin: 07/09/17 08:34 Dose: 250 mg Sodium Chloride (Saline Flush) 10 ml FLUSH ASDIRECTED PRN PRN Reason: Keep Vein Open Sodium Chloride (Saline Flush) 10 ml FLUSH ONETIME PRN PRN Reason: IV FLUSH Last Admin: 07/09/17 12:22 Dose: 10 ml Vancomycin HCl (Pharmacy To Dose - Vancomycin) 1 dose .XX ASDIRECTED [facility] Discontinued Medications Bacitracin (Bacitracin Oint) 0 gm TOP BID [facility] Last Admin: 07/07/17 08:51 Dose: Not Given Bupivacaine HCl (Marcaine 0.5%) Confirm Administered Dose 30 ml .ROUTE .STK-MED ONE Stop: 07/06/17 10:14 Last Admin: 07/06/17 11:19 Dose: 5 ml Diphenhydramine HCl (Benadryl) 25 mg IVPUSH Q6H PRN PRN Reason: Pruritis Stop: 07/06/17 18:00 Fentanyl (Sublimaze) Confirm Administered Dose 100 mcg .ROUTE .STK-MED ONE Stop: 07/08/17 23:55 Fentanyl (Sublimaze) 50 mcg IVPUSH Q5M PRN PRN Reason: Pain Stop: 07/06/17 18:00 Last Admin: 07/06/17 12:06 Dose: 50 mcg Glycopyrrolate (Robinul) Confirm Administered Dose 0.2 mg .ROUTE .STK-MED ONE Stop: 07/06/17 11:37 Hydromorphone HCl (Dilaudid) 0.5 mg IVPUSH ONETIME ONE Stop: 07/04/17 10:30 Last Admin: 07/04/17 10:38 Dose: 0.5 mg Hydromorphone HCl (Dilaudid) Confirm Administered Dose 0.5 mg .ROUTE .STK-MED ONE Stop: 07/06/17 11:27 Hydromorphone HCl (Dilaudid) Confirm Administered Dose 0.5 mg .ROUTE .STK-MED ONE Stop: 07/06/17 11:31 Hydromorphone HCl (Dilaudid) Confirm Administered Dose 0.5 mg .ROUTE .STK-MED ONE Stop: 07/06/17 11:41 Hydromorphone HCl (Dilaudid) 0.5 mg IVPUSH ASDIRECTED PRN PRN Reason: Severe Pain Stop: 07/06/17 14:00 Last Admin: 07/06/17 12:22 Dose: 0.5 mg Piperacillin Sod/Tazobactam (Sod 4.5 gm/ Sodium Chloride) 100 mls @ 200 mls/hr IV ONETIME ONE Stop: 07/04/17 10:52 Last Admin: 07/04/17 10:38 Dose: 200 mls/hr Vancomycin HCl 2 gm/ Sodium (Chloride) 250 mls @ 250 mls/hr IV ONETIME ONE Stop: 07/04/17 11:28 Last Admin: 07/04/17 10:56 Dose: Not Given Vancomycin HCl 2 gm/ Sodium (Chloride) 500 mls @ 500 mls/hr IV ONETIME ONE Stop: 07/04/17 11:44 Last Admin: 07/04/17 10:56 Dose: 500 mls/hr Clindamycin Phosphate 600 mg/ (Dextrose/Water) 104 mls @ 208 mls/hr IV Q6H [facility] Last Admin: 07/06/17 14:41 Dose: Not Given Vancomycin HCl 2 gm/ Sodium (Chloride) 500 mls @ 250 mls/hr IV ONETIME ONE Stop: 07/06/17 12:23 Last Admin: 07/06/17 11:05 Dose: 250 mls/hr Lidocaine HCl (Xylocaine-Mpf 1%) Confirm Administered Dose 6 mls @ as directed .ROUTE .STK-MED ONE Stop: 07/06/17 11:26 Lactated Ringer's (Ringers, Lactated) Confirm Administered Dose 1,000 mls @ as directed .ROUTE .STK-MED ONE Stop: 07/06/17 11:37 Metronidazole 500 mg/ Premix 100 mls @ 100 mls/hr IV Q8H [facility] Last Admin: 07/09/17 06:19 Dose: 100 mls/hr Piperacillin Sod/Tazobactam (Sod 4.5 gm/ Sodium Chloride) 100 mls @ 200 mls/hr IV ONETIME ONE Stop: 07/09/17 11:29 Last Admin: 07/09/17 14:38 Dose: 200 mls/hr Iopamidol (Isovue-300 (61%)) 125 ml IVPUSH ONETIME ONE Stop: 07/09/17 11:16 Last Admin: 07/09/17 12:22 Dose: 125 ml Ketamine HCl (Ketalar) Confirm Administered Dose 500 mg .ROUTE .STK-MED ONE Stop: 07/06/17 10:38 Ketorolac Tromethamine (Toradol) 30 mg IM Q6H [facility] Last Admin: 07/04/17 20:11 Dose: 30 mg Ketorolac Tromethamine (Toradol) 30 mg IVPUSH Q6H [facility] Stop: 07/09/17 08:01 Last Admin: 07/07/17 20:29 Dose: 30 mg Lidocaine/Epinephrine (Xylocaine 1% With Epinephrine 1:100,000) Confirm Administered Dose 20 ml .ROUTE .STK-MED ONE Stop: 07/06/17 10:14 Last Admin: 07/06/17 11:19 Dose: 5 ml Midazolam HCl (Versed 1 Mg/Ml) Confirm Administered Dose 2 mg .ROUTE .STK-MED ONE Stop: 07/06/17 10:38 Ondansetron HCl (Zofran) Confirm Administered Dose 4 mg .ROUTE .STK-MED ONE Stop: 07/06/17 11:36 Ondansetron HCl (Zofran) 4 mg IVPUSH ONETIME PRN PRN Reason: Nausea/Vomiting Stop: 07/06/17 16:00 Propofol (Diprivan 20 Ml) Confirm Administered Dose 1,200 mg .ROUTE .STK-MED ONE Stop: 07/06/17 10:54 Propofol (Diprivan 20 Ml) Confirm Administered Dose 600 mg .ROUTE .STK-MED ONE Stop: 07/07/17 08:11 Vancomycin HCl (Pharmacy To Dose - Vancomycin) 1 dose .XX ASDIRECTED [facility]
[2017-07-09] MEDS ORDERED: Piperacillin/Tazobactam 4.5 GM in Sodium Chloride 0.9% 100 ML IV SCH (19:00)
[2017-07-09] MEDS: Piperacillin/Tazobactam 4.5 GM in Sodium Chloride 0.9% 100 ML IV SCH (20:46)
[2017-07-10] MEDS: Acetaminophen/oxyCODONE 325-5 MG Tab PO PRN ×6 (00:52→23:27)
[2017-07-10] MEDS: Vancomycin 1 GM, Vancomycin 500 MG in Sodium Chloride 0.9% 500 ML IV SCH ×3 (02:59→19:11)
[2017-07-10] MEDS: Piperacillin/Tazobactam 4.5 GM in Sodium Chloride 0.9% 100 ML IV SCH ×3 (04:52→21:39)
[2017-07-10] MEDS: Ibuprofen 800 MG Tab PO SCH ×3 (06:40→23:27)
[2017-07-10] MEDS: Docusate Sodium 100 MG Cap PO SCH ×2 (08:11→20:30)
[2017-07-10] MEDS: Saccharomyces Boulardii (Probiotic) 250 MG Cap PO SCH ×2 (08:11→20:30)
[2017-07-10] MEDS: Enoxaparin 40 MG/0.4 ML Syringe SUBCUT SCH (08:12)
[2017-07-10] MEDS ORDERED: Gadobenate Dimeglumine 529 MG/ML 20 ML SDV IVPUSH ONE (14:54)
[2017-07-10] MEDS ORDERED: Sodium Chloride 0.9% 10 ML Syringe FLUSH PRN (14:54)
[2017-07-10] MEDS: HYDROmorphone 0.5 MG/0.5 ML SYRINGE IVPUSH PRN (16:06)
--- NOTE | 2017-07-10 19:39 | PCM.CONSN ---
- General Info Date of Service: 07/10/17 - Patient Data Vitals - Most Recent: Last Vital Signs Temp 99.0 F 07/10/17 13:55 Pulse 72 07/10/17 13:55 Resp 20 07/10/17 13:55 BP 142/98 H 07/10/17 13:55 Pulse Ox 99 07/10/17 13:55 Weight - Most Recent: 107.275 kg I&O - Last 24 Hours: Intake & Output 07/10/17 07/10/17 07/10/17 07:59 15:59 23:59 Intake Total 3445 270 3285 Balance 3810 916 8769 Lab Results Last 24 Hours: Laboratory Results - last 24 hr 07/10/17 07/10/17 07/10/17 Range/Units 05:40 05:40 05:40 WBC 9.31 H (4.23-9.07) K/mm3 RBC 4.71 (4.63-6.08) M/mm3 Hgb 13.4 L (13.7-17.5) gm/L Hct 40.2 (40.1-51.0) % MCV 85.4 (79.0-92.2) fl MCH 28.5 (25.7-32.2) pg MCHC 33.3 (32.2-35.5) g/dl RDW Std Deviation 38.8 (35.1-43.9) fL Plt Count 383 H (163-337) K/mm3 MPV 9.8 (9.4-12.3) fl Neut % (Auto) 77.4 H (34.0-67.9) % Lymph % (Auto) 8.3 L (21.8-53.1) % [place] % (Auto) 9.0 (5.3-12.2) % Eos % (Auto) 3.1 (0.8-7.0) Baso % (Auto) 0.3 (0.1-1.2) % Neut # (Auto) 7.20 H (1.78-5.38) K/mm3 Lymph # (Auto) 0.77 L (1.32-3.57) K/mm3 [place] # (Auto) 0.84 H (0.30-0.82) K/mm3 Eos # (Auto) 0.29 (0.04-0.54) K/mm3 Baso # (Auto) 0.03 (0.01-0.08) K/mm3 Manual Slide Review Abnormal smear ESR 36 H (0-15) mm/hr C-Reactive Protein 3.6 H* (<1.0) mg/dL [place] Results Last 24 Hours: Microbiology 07/04/17 11:10 Aerobic Blood Culture - Preliminary Blood - Venous - Lab Draw NO GROWTH AFTER 6 DAYS Anaerobic Blood Culture - Preliminary NO GROWTH AFTER 6 DAYS 07/04/17 10:58 Aerobic Blood Culture - Preliminary Blood - Venous NO GROWTH AFTER 6 DAYS Anaerobic Blood Culture - Preliminary NO GROWTH AFTER 6 DAYS Med Orders - Current: Current Medications Docusate Sodium (Colace) 100 mg PO BID [facility] [place] Last Admin: 07/10/17 08:11 Dose: 100 mg Enoxaparin Sodium (Lovenox) 40 mg SUBCUT DAILY [facility] [place] Last Admin: 07/10/17 08:12 Dose: 40 mg Hydromorphone HCl (Dilaudid) 0.5 mg IVPUSH Q2H PRN PRN Reason: Pain (severe 7-10) Last Admin: 07/10/17 16:06 Dose: 0.5 mg Vancomycin HCl 1 gm/Vancomycin HCl 500 mg/ Sodium Chloride 500 mls @ 333.333 mls/hr IV Q8H [facility] [place] Last Admin: 07/10/17 19:11 Dose: 333.333 mls/hr Piperacillin Sod/Tazobactam (Sod 4.5 gm/ Sodium Chloride) 100 mls @ 25 mls/hr IV Q8H [facility] [place] Last Admin: 07/10/17 13:35 Dose: 25 mls/hr Ibuprofen (Motrin) 800 mg PO Q8H [facility] [place] Last Admin: 07/10/17 15:51 Dose: 800 mg Magnesium Hydroxide (Milk Of Magnesia) 30 ml PO BID PRN PRN Reason: Constipation Last Admin: 07/07/17 03:50 Dose: 30 ml Ondansetron HCl (Zofran) 4 mg IV Q4H PRN PRN Reason: Nausea/Vomiting Oxycodone/Acetaminophen (Percocet 325-5 Mg) 1 - 2 tab PO Q4H PRN PRN Reason: Pain Last Admin: 07/10/17 18:55 Dose: 2 tab Saccharomyces Boulardii (Florastor) 250 mg PO BID [facility] [place] Last Admin: 07/10/17 08:11 Dose: 250 mg Sodium Chloride (Saline Flush) 10 ml FLUSH ASDIRECTED PRN PRN Reason: Keep Vein Open Sodium Chloride (Saline Flush) 10 ml FLUSH ONETIME PRN PRN Reason: IV FLUSH Last Admin: 07/09/17 12:22 Dose: 10 ml Vancomycin HCl (Pharmacy To Dose - Vancomycin) 1 dose .XX ASDIRECTED [facility] Discontinued Medications Bacitracin (Bacitracin Oint) 0 gm TOP BID [facility] Last Admin: 07/07/17 08:51 Dose: Not Given Bupivacaine HCl (Marcaine 0.5%) Confirm Administered Dose 30 ml .ROUTE .STK-MED ONE Stop: 07/06/17 10:14 Last Admin: 07/06/17 11:19 Dose: 5 ml Diphenhydramine HCl (Benadryl) 25 mg IVPUSH Q6H PRN PRN Reason: Pruritis Stop: 07/06/17 18:00 Fentanyl (Sublimaze) Confirm Administered Dose 100 mcg .ROUTE .STK-MED ONE Stop: 07/08/17 23:55 Fentanyl (Sublimaze) 50 mcg IVPUSH Q5M PRN PRN Reason: Pain Stop: 07/06/17 18:00 Last Admin: 07/06/17 12:06 Dose: 50 mcg Gadobenate Dimeglumine (Multihance) 20 ml IVPUSH ONETIME ONE Stop: 07/10/17 14:55 Glycopyrrolate (Robinul) Confirm Administered Dose 0.2 mg .ROUTE .STK-MED ONE Stop: 07/06/17 11:37 Hydromorphone HCl (Dilaudid) 0.5 mg IVPUSH ONETIME ONE Stop: 07/04/17 10:30 Last Admin: 07/04/17 10:38 Dose: 0.5 mg Hydromorphone HCl (Dilaudid) Confirm Administered Dose 0.5 mg .ROUTE .STK-MED ONE Stop: 07/06/17 11:27 Hydromorphone HCl (Dilaudid) Confirm Administered Dose 0.5 mg .ROUTE .STK-MED ONE Stop: 07/06/17 11:31 Hydromorphone HCl (Dilaudid) Confirm Administered Dose 0.5 mg .ROUTE .STK-MED ONE Stop: 07/06/17 11:41 Hydromorphone HCl (Dilaudid) 0.5 mg IVPUSH ASDIRECTED PRN PRN Reason: Severe Pain Stop: 07/06/17 14:00 Last Admin: 07/06/17 12:22 Dose: 0.5 mg Piperacillin Sod/Tazobactam (Sod 4.5 gm/ Sodium Chloride) 100 mls @ 200 mls/hr IV ONETIME ONE Stop: 07/04/17 10:52 Last Admin: 07/04/17 10:38 Dose: 200 mls/hr Vancomycin HCl 2 gm/ Sodium (Chloride) 250 mls @ 250 mls/hr IV ONETIME ONE Stop: 07/04/17 11:28 Last Admin: 07/04/17 10:56 Dose: Not Given Vancomycin HCl 2 gm/ Sodium (Chloride) 500 mls @ 500 mls/hr IV ONETIME ONE Stop: 07/04/17 11:44 Last Admin: 07/04/17 10:56 Dose: 500 mls/hr Clindamycin Phosphate 600 mg/ (Dextrose/Water) 104 mls @ 208 mls/hr IV Q6H [facility] [place] Last Admin: 07/06/17 14:41 Dose: Not Given Vancomycin HCl 2 gm/ Sodium (Chloride) 500 mls @ 250 mls/hr IV ONETIME ONE Stop: 07/06/17 12:23 Last Admin: 07/06/17 11:05 Dose: 250 mls/hr Lidocaine HCl (Xylocaine-Mpf 1%) Confirm Administered Dose 6 mls @ as directed .ROUTE .STK-MED ONE Stop: 07/06/17 11:26 Lactated Ringer's (Ringers, Lactated) Confirm Administered Dose 1,000 mls @ as directed .ROUTE .STK-MED ONE Stop: 07/06/17 11:37 Metronidazole 500 mg/ Premix 100 mls @ 100 mls/hr IV Q8H [facility] [place] Last Admin: 07/09/17 06:19 Dose: 100 mls/hr Piperacillin Sod/Tazobactam (Sod 4.5 gm/ Sodium Chloride) 100 mls @ 25 mls/hr IV Q8H [facility] Piperacillin Sod/Tazobactam (Sod 4.5 gm/ Sodium Chloride) 100 mls @ 200 mls/hr IV ONETIME ONE Stop: 07/09/17 11:29 Last Admin: 07/09/17 14:38 Dose: 200 mls/hr Iopamidol (Isovue-300 (61%)) 125 ml IVPUSH ONETIME ONE Stop: 07/09/17 11:16 Last Admin: 07/09/17 12:22 Dose: 125 ml Ketamine HCl (Ketalar) Confirm Administered Dose 500 mg .ROUTE .STK-MED ONE Stop: 07/06/17 10:38 Ketorolac Tromethamine (Toradol) 30 mg IM Q6H [facility] [place] Last Admin: 07/04/17 20:11 Dose: 30 mg Ketorolac Tromethamine (Toradol) 30 mg IVPUSH Q6H [facility] [place] Stop: 07/09/17 08:01 Last Admin: 07/07/17 20:29 Dose: 30 mg Lidocaine/Epinephrine (Xylocaine 1% With Epinephrine 1:100,000) Confirm Administered Dose 20 ml .ROUTE .STK-MED ONE Stop: 07/06/17 10:14 Last Admin: 07/06/17 11:19 Dose: 5 ml Midazolam HCl (Versed 1 Mg/Ml) Confirm Administered Dose 2 mg .ROUTE .STK-MED ONE Stop: 07/06/17 10:38 Ondansetron HCl (Zofran) Confirm Administered Dose 4 mg .ROUTE .STK-MED ONE Stop: 07/06/17 11:36 Ondansetron HCl (Zofran) 4 mg IVPUSH ONETIME PRN PRN Reason: Nausea/Vomiting Stop: 07/06/17 16:00 Propofol (Diprivan 20 Ml) Confirm Administered Dose 1,200 mg .ROUTE .STK-MED ONE Stop: 07/06/17 10:54 Propofol (Diprivan 20 Ml) Confirm Administered Dose 600 mg .ROUTE .STK-MED ONE Stop: 07/07/17 08:11 Sodium Chloride (Saline Flush) 10 ml FLUSH ONETIME PRN PRN Reason: Keep Vein Open Stop: 07/10/17 18:00 Vancomycin HCl (Pharmacy To Dose - Vancomycin) 1 dose .XX ASDIRECTED [facility] [place] Consult PN Assessment/Plan Problem List Initiated/Reviewed/Updated: Yes My Orders Last 24 Hours: My Active Orders 07/10/17 13:49 Knee w wo Cont Rt [MR] Routine 07/10/17 19:27 Wound Care [RC] DAILY 07/10/17 19:29 Communication Order [RC] DAILY Plan: child welfare consultant note dictated JMB
[2017-07-11] MEDS: Vancomycin 1 GM, Vancomycin 500 MG in Sodium Chloride 0.9% 500 ML IV SCH ×2 (02:59→12:00)
[2017-07-11] MEDS: Acetaminophen/oxyCODONE 325-5 MG Tab PO PRN ×5 (04:43→22:28)
[2017-07-11] MEDS: Piperacillin/Tazobactam 4.5 GM in Sodium Chloride 0.9% 100 ML IV SCH ×2 (04:53→15:55)
[2017-07-11] MEDS: Ibuprofen 800 MG Tab PO SCH ×3 (07:41→22:30)
--- NOTE | 2017-07-11 07:47 | MR ---
MRI right knee (without and with IV contrast) Technique: Proton fat-suppressed, T1 fat-suppressed and T1 fat-suppressed post- gadolinium axial; fat-suppressed inversion recovery, T2 gradient echo, T2 fat- suppressed, T1 fat-suppressed and T1 fat-suppressed post-gadolinium coronal; T1 , T2 gradient echo, T1 fat-suppressed and T1 fat-suppressed post-gadolinium sagittal. Findings: Soft tissue defect is seen anteriorly. Patellofemoral cartilage is preserved. Diffuse subcutaneous edema is seen around the knee. Small joint effusion is seen. Small amount of increased signal is noted within the patellar apex likely representing minimal chondromalacia. Diffuse enhancement is seen of the subcutaneous tissues after contrast administration. No focal fluid collections seen to indicate definite abscess. No muscle abnormality is seen. Quadriceps and patellar tendons are within normal limits. Anterior and posterior cruciate ligaments are intact. Small meniscal tear is seen within the posterior meniscus of the origin of the medial meniscus. Lateral meniscus is within normal limits. Cartilage within the medial and lateral joints appears preserved. Lateral collateral and medial collateral ligaments are intact. Impression: 1. Diffuse enhancement and edema within the subcutaneous tissues around the knee. This is compatible with diffuse cellulitis. Soft tissue defect is seen anteriorly. 2. No abscess is seen. No muscle abnormality is seen. 3. Small meniscal tear within the posterior aspect of the medial meniscus. 4. Small joint effusion. 5. Minimal signal within the patellar apex likely representing minimal chondromalacia. Diagnostic code #3 MTDD
[2017-07-11] MEDS: Docusate Sodium 100 MG Cap PO SCH ×2 (09:05→21:31)
[2017-07-11] MEDS: Enoxaparin 40 MG/0.4 ML Syringe SUBCUT SCH (09:05)
[2017-07-11] MEDS: Saccharomyces Boulardii (Probiotic) 250 MG Cap PO SCH ×2 (09:05→21:30)
--- NOTE | 2017-07-11 13:41 | PCM.CONSN ---
- General Info Date of Service: 07/11/17 Functional Status: Reports: Pain Controlled - Review of Systems General: Reports: No Symptoms Skin: Reports: No Symptoms - Patient Data Vitals - Most Recent: Last Vital Signs Temp 97.9 F 07/11/17 08:15 Pulse 62 07/11/17 08:15 Resp 16 07/11/17 08:15 BP 139/74 07/11/17 08:15 Pulse Ox 100 07/11/17 08:15 Weight - Most Recent: 108.091 kg I&O - Last 24 Hours: Intake & Output 07/10/17 07/11/17 07/11/17 23:59 07:59 15:59 Intake Total 2725 2250 120 Balance 2725 2250 120 Lab Results Last 24 Hours: Laboratory Results - last 24 hr 07/11/17 07/11/17 07/11/17 Range/Units 05:43 05:43 05:43 WBC 10.47 H (4.23-9.07) K/mm3 RBC 4.50 L (4.63-6.08) M/mm3 Hgb 12.9 L (13.7-17.5) gm/L Hct 38.9 L (40.1-51.0) % MCV 86.4 (79.0-92.2) fl MCH 28.7 (25.7-32.2) pg MCHC 33.2 (32.2-35.5) g/dl RDW Std Deviation 39.0 (35.1-43.9) fL Plt Count 372 H (163-337) K/mm3 MPV 9.8 (9.4-12.3) fl Neut % (Auto) 74.5 H (34.0-67.9) % Lymph % (Auto) 11.3 L (21.8-53.1) % [place] % (Auto) 8.0 (5.3-12.2) % Eos % (Auto) 2.7 (0.8-7.0) Baso % (Auto) 0.3 (0.1-1.2) % Neut # (Auto) 7.81 H (1.78-5.38) K/mm3 Lymph # (Auto) 1.18 L (1.32-3.57) K/mm3 [place] # (Auto) 0.84 H (0.30-0.82) K/mm3 Eos # (Auto) 0.28 (0.04-0.54) K/mm3 Baso # (Auto) 0.03 (0.01-0.08) K/mm3 Manual Slide Review Abnormal smear ESR 25 H (0-15) mm/hr C-Reactive Protein 2.2 H* (<1.0) mg/dL Vancomycin Trough (10.0-20.0) 07/11/17 Range/Units 10:50 WBC (4.23-9.07) K/mm3 RBC (4.63-6.08) M/mm3 Hgb (13.7-17.5) gm/L Hct (40.1-51.0) % MCV (79.0-92.2) fl MCH (25.7-32.2) pg MCHC (32.2-35.5) g/dl RDW Std Deviation (35.1-43.9) fL Plt Count (163-337) K/mm3 MPV (9.4-12.3) fl Neut % (Auto) (34.0-67.9) % Lymph % (Auto) (21.8-53.1) % [place] % (Auto) (5.3-12.2) % Eos % (Auto) (0.8-7.0) Baso % (Auto) (0.1-1.2) % Neut # (Auto) (1.78-5.38) K/mm3 Lymph # (Auto) (1.32-3.57) K/mm3 [place] # (Auto) (0.30-0.82) K/mm3 Eos # (Auto) (0.04-0.54) K/mm3 Baso # (Auto) (0.01-0.08) K/mm3 Manual Slide Review ESR (0-15) mm/hr C-Reactive Protein (<1.0) mg/dL Vancomycin Trough 14.7 (10.0-20.0) [place] Results Last 24 Hours: Microbiology 07/04/17 11:10 Aerobic Blood Culture - Final Blood - Venous - Lab Draw NO GROWTH AFTER 7 DAYS Anaerobic Blood Culture - Final NO GROWTH AFTER 7 DAYS 07/04/17 10:58 Aerobic Blood Culture - Final Blood - Venous NO GROWTH AFTER 7 DAYS Anaerobic Blood Culture - Final NO GROWTH AFTER 7 DAYS Med Orders - Current: Current Medications Docusate Sodium (Colace) 100 mg PO BID [facility] Last Admin: 07/11/17 09:05 Dose: 100 mg Enoxaparin Sodium (Lovenox) 40 mg SUBCUT DAILY [facility] Last Admin: 07/11/17 09:05 Dose: 40 mg Hydromorphone HCl (Dilaudid) 0.5 mg IVPUSH Q2H PRN PRN Reason: Pain (severe 7-10) Last Admin: 07/10/17 16:06 Dose: 0.5 mg Ibuprofen (Motrin) 800 mg PO Q8H [facility] Last Admin: 07/11/17 07:41 Dose: 800 mg Magnesium Hydroxide (Milk Of Magnesia) 30 ml PO BID PRN PRN Reason: Constipation Last Admin: 07/07/17 03:50 Dose: 30 ml Ondansetron HCl (Zofran) 4 mg IV Q4H PRN PRN Reason: Nausea/Vomiting Oxycodone/Acetaminophen (Percocet 325-5 Mg) 1 - 2 tab PO Q4H PRN PRN Reason: Pain Last Admin: 07/11/17 09:06 Dose: 2 tab Saccharomyces Boulardii (Florastor) 250 mg PO BID [facility] Last Admin: 07/11/17 09:05 Dose: 250 mg Sodium Chloride (Saline Flush) 10 ml FLUSH ASDIRECTED PRN PRN Reason: Keep Vein Open Sodium Chloride (Saline Flush) 10 ml FLUSH ONETIME PRN PRN Reason: IV FLUSH Last Admin: 07/09/17 12:22 Dose: 10 ml Trimethoprim/Sulfamethoxazole (Septra Ds) 1 tab PO BID [facility] Discontinued Medications Bacitracin (Bacitracin Oint) 0 gm TOP BID [facility] Last Admin: 07/07/17 08:51 Dose: Not Given Bupivacaine HCl (Marcaine 0.5%) Confirm Administered Dose 30 ml .ROUTE .STK-MED ONE Stop: 07/06/17 10:14 Last Admin: 07/06/17 11:19 Dose: 5 ml Diphenhydramine HCl (Benadryl) 25 mg IVPUSH Q6H PRN PRN Reason: Pruritis Stop: 07/06/17 18:00 Fentanyl (Sublimaze) Confirm Administered Dose 100 mcg .ROUTE .STK-MED ONE Stop: 07/08/17 23:55 Fentanyl (Sublimaze) 50 mcg IVPUSH Q5M PRN PRN Reason: Pain Stop: 07/06/17 18:00 Last Admin: 07/06/17 12:06 Dose: 50 mcg Gadobenate Dimeglumine (Multihance) 20 ml IVPUSH ONETIME ONE Stop: 07/10/17 14:55 Last Admin: 07/10/17 22:32 Dose: Not Given Glycopyrrolate (Robinul) Confirm Administered Dose 0.2 mg .ROUTE .STK-MED ONE Stop: 07/06/17 11:37 Hydromorphone HCl (Dilaudid) 0.5 mg IVPUSH ONETIME ONE Stop: 07/04/17 10:30 Last Admin: 07/04/17 10:38 Dose: 0.5 mg Hydromorphone HCl (Dilaudid) Confirm Administered Dose 0.5 mg .ROUTE .STK-MED ONE Stop: 07/06/17 11:27 Hydromorphone HCl (Dilaudid) Confirm Administered Dose 0.5 mg .ROUTE .STK-MED ONE Stop: 07/06/17 11:31 Hydromorphone HCl (Dilaudid) Confirm Administered Dose 0.5 mg .ROUTE .STK-MED ONE Stop: 07/06/17 11:41 Hydromorphone HCl (Dilaudid) 0.5 mg IVPUSH ASDIRECTED PRN PRN Reason: Severe Pain Stop: 07/06/17 14:00 Last Admin: 07/06/17 12:22 Dose: 0.5 mg Piperacillin Sod/Tazobactam (Sod 4.5 gm/ Sodium Chloride) 100 mls @ 200 mls/hr IV ONETIME ONE Stop: 07/04/17 10:52 Last Admin: 07/04/17 10:38 Dose: 200 mls/hr Vancomycin HCl 2 gm/ Sodium (Chloride) 250 mls @ 250 mls/hr IV ONETIME ONE Stop: 07/04/17 11:28 Last Admin: 07/04/17 10:56 Dose: Not Given Vancomycin HCl 2 gm/ Sodium (Chloride) 500 mls @ 500 mls/hr IV ONETIME ONE Stop: 07/04/17 11:44 Last Admin: 07/04/17 10:56 Dose: 500 mls/hr Clindamycin Phosphate 600 mg/ (Dextrose/Water) 104 mls @ 208 mls/hr IV Q6H [facility] Last Admin: 07/06/17 14:41 Dose: Not Given Vancomycin HCl 2 gm/ Sodium (Chloride) 500 mls @ 250 mls/hr IV ONETIME ONE Stop: 07/06/17 12:23 Last Admin: 07/06/17 11:05 Dose: 250 mls/hr Lidocaine HCl (Xylocaine-Mpf 1%) Confirm Administered Dose 6 mls @ as directed .ROUTE .STK-MED ONE Stop: 07/06/17 11:26 Lactated Ringer's (Ringers, Lactated) Confirm Administered Dose 1,000 mls @ as directed .ROUTE .STK-MED ONE Stop: 07/06/17 11:37 Vancomycin HCl 1 gm/Vancomycin HCl 500 mg/ Sodium Chloride 500 mls @ 333.333 mls/hr IV Q8H [facility] Last Admin: 07/11/17 12:00 Dose: 333.333 mls/hr Metronidazole 500 mg/ Premix 100 mls @ 100 mls/hr IV Q8H [facility] Last Admin: 07/09/17 06:19 Dose: 100 mls/hr Piperacillin Sod/Tazobactam (Sod 4.5 gm/ Sodium Chloride) 100 mls @ 25 mls/hr IV Q8H [facility] Piperacillin Sod/Tazobactam (Sod 4.5 gm/ Sodium Chloride) 100 mls @ 200 mls/hr IV ONETIME ONE Stop: 07/09/17 11:29 Last Admin: 07/09/17 14:38 Dose: 200 mls/hr Piperacillin Sod/Tazobactam (Sod 4.5 gm/ Sodium Chloride) 100 mls @ 25 mls/hr IV Q8H [facility] Last Admin: 07/11/17 04:53 Dose: 25 mls/hr Iopamidol (Isovue-300 (61%)) 125 ml IVPUSH ONETIME ONE Stop: 07/09/17 11:16 Last Admin: 07/09/17 12:22 Dose: 125 ml Ketamine HCl (Ketalar) Confirm Administered Dose 500 mg .ROUTE .STK-MED ONE Stop: 07/06/17 10:38 Ketorolac Tromethamine (Toradol) 30 mg IM Q6H [facility] Last Admin: 07/04/17 20:11 Dose: 30 mg Ketorolac Tromethamine (Toradol) 30 mg IVPUSH Q6H [facility] Stop: 07/09/17 08:01 Last Admin: 07/07/17 20:29 Dose: 30 mg Lidocaine/Epinephrine (Xylocaine 1% With Epinephrine 1:100,000) Confirm Administered Dose 20 ml .ROUTE .STK-MED ONE Stop: 07/06/17 10:14 Last Admin: 07/06/17 11:19 Dose: 5 ml Midazolam HCl (Versed 1 Mg/Ml) Confirm Administered Dose 2 mg .ROUTE .STK-MED ONE Stop: 07/06/17 10:38 Ondansetron HCl (Zofran) Confirm Administered Dose 4 mg .ROUTE .STK-MED ONE Stop: 07/06/17 11:36 Ondansetron HCl (Zofran) 4 mg IVPUSH ONETIME PRN PRN Reason: Nausea/Vomiting Stop: 07/06/17 16:00 Propofol (Diprivan 20 Ml) Confirm Administered Dose 1,200 mg .ROUTE .STK-MED ONE Stop: 07/06/17 10:54 Propofol (Diprivan 20 Ml) Confirm Administered Dose 600 mg .ROUTE .STK-MED ONE Stop: 07/07/17 08:11 Sodium Chloride (Saline Flush) 10 ml FLUSH ONETIME PRN PRN Reason: Keep Vein Open Stop: 07/10/17 18:00 Vancomycin HCl (Pharmacy To Dose - Vancomycin) 1 dose .XX ASDIRECTED [facility] Vancomycin HCl (Pharmacy To Dose - Vancomycin) 1 dose .XX ASDIRECTED [facility] Consult PN Assessment/Plan Problem List Initiated/Reviewed/Updated: Yes My Orders Last 24 Hours: My Active Orders 07/10/17 19:27 Wound Care [RC] DAILY 07/10/17 19:29 Communication Order [RC] DAILY 07/11/17 09:12 Wound Vac Management [OM.PC] Routine 07/11/17 09:21 Consult to Physical Therapy [PT Evaluation and Treatment] [CONS] Routine 07/11/17 13:45 Sulfamethoxazole/Trimethoprim [Septra DS] 1 tab PO BID Plan: pt VS stable no complaints that are new exam wound stable C&S shows MRSA sensitive to bacterium DS MRI shows no bone infection ass improved plan place vac, DC IV meds and start sulfa anticipate discharge to home in [place] and make arrangement to follow up in wound care clinic in [place] GABRIELE
[2017-07-11] MEDS: Sulfamethoxazole/Trimethoprim 800-160 MG Tab PO SCH (21:30)
[2017-07-12] MEDS: Acetaminophen/oxyCODONE 325-5 MG Tab PO PRN ×2 (02:51→06:43)
[2017-07-12] MEDS: Ibuprofen 800 MG Tab PO SCH (06:42)
[2017-07-12] MEDS: Saccharomyces Boulardii (Probiotic) 250 MG Cap PO SCH (09:14)
[2017-07-12] MEDS: Sulfamethoxazole/Trimethoprim 800-160 MG Tab PO SCH (09:14)
[2017-07-12] MEDS: Docusate Sodium 100 MG Cap PO SCH (09:14)
[2017-07-12] MEDS: Enoxaparin 40 MG/0.4 ML Syringe SUBCUT SCH (09:15)
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
== END 2017-07-12 12:28 | disposition home or self-care (01) | DRG 581 ==
LOC: JD.ED 09:46 → INTOOBSV 13:06 → JD.MS 13:06 → INTOOBSV 07-05 11:43 → OBSVTOIN 07-05 11:43
PROVIDERS: ADMIT Emergency Medicine; ATTEND Student in an Organized Health Care Education/Training Program
PROC: 0JDN0ZZ Extraction of Right Lower Leg Subcutaneous Tissue and Fascia, Open Approach (ICD-10-PCS; principal; 2017-07-06)
PROC: 2W1QX6Z Compression of Right Lower Leg using Pressure Dressing (ICD-10-PCS; 2017-07-10)
DX: L02.415 Cutaneous abscess of right lower limb (principal); L03.115 Cellulitis of right lower limb; B95.62 Methicillin resistant Staphylococcus aureus infection as the cause of diseases classified elsewhere; B95.4 Other streptococcus as the cause of diseases classified elsewhere; W00.0XXA Fall on same level due to ice and snow, initial encounter
CPT/HCPCS: 00400; 36415; 73564-26-RT; 73564-RT; 73701-26-RT; 73701-RT; 73723-26-RT; 73723-RT; 80053; 80202; 85025; 85652; 86140; 87040; 87075; 87076; 87077; 87147; 87181; 87186; 87205; 96365; 96366; 96367; 96372; 96375; 96376; 97161-GP; 97605-GP; 99284; 99285-25; A9270-GY; G0378; J1170; J1650; J1885; J2001; J2250; J2405; J2543; J2704; J3010; J3370; J3490; J7030; J7040; J7050; J7060; J7120; Q9967